=== PATIENT | male | born 1975 | race Caucasian/White ===

== ENCOUNTER 2022-04-09 04:20 | Outpatient (CLI) | payer MEDICAID, SELFPAY ==
--- OUTSIDE RECORDS SUMMARY | 2022-04-08 13:24 | XMS_ITS | Continuity of Care Document ---
:[address] [facility] Address [address] [place] [address] Care Team Providers Name Role Phone Korey Haro Primary Care Physician Encounter NCTY_[place] Date(s): 01/22/22 - 01/22/22 [facility] [address] [place] [address] Discharge Disposition: Home or Self Care Attending Physician: Fifi Amin Admitting Physician: Fifi Amin Referring Physician: Fifi Amin Allergies, Adverse Reactions, Alerts Substance Reaction Severity Status erythromycin Urticaria Unknown Active iodine topical Urticaria Moderate Active Assessment and Plan Future AppointmentsDiagnostic Tests PendingImmunoglobulin Free Light Chains, S MADRID 01/22/22 Future Scheduled TestsLaboratoryFerritin 11/13/21Drug Screen Urine 01/19/22 SARS-CoV-2 (COVID-19) RNA (ID Now) 11/26/21 Immunizations Given and Recorded Vaccine Date Status Refusal Reason influenza virus vaccine, live 12/31/16 Recorded tetanus/diphth/pertuss (Tdap) adult/adol 04/24/11 Recorde d Not Given Vaccine Date Status Refusal Reason influenza, unspecified formulation1 09/15/21 Not Given Patient Refuses influenza, unspecified formulation2 09/15/21 Not Given Patient Refuses 1Result Comment: Last modified on [id number] Comment: Last modified on 01-22-2020 Medications !-Spiriva 18 mcg inhalation capsule 18 mcg = 1 cap, Inhale, Daily, use two inhalations of one capsule for each dose, # 90 EA, 0 Refill(s), Pharmacy: [facility] Start Date: 10/27/21 Status: OrderedDuration: Lifetime Duration: , URGENT Severe Sleep Apnea Send to [facility] [place] [ x ] Auto BIPAP Imax 22 Jama 11 PS 4 cmH2O 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 Dispense PAP machine machine with heated tubing, humidification, and cristal... Start Date: 07/24/21 Status: OrderedHYDROcodone-acetaminophen 10 mg-325 mg oral tablet 2 tabs, Oral, every 4 hr, PRN as needed for pain, TAKE TWO TABLETS BY MOUTH EVERY 4 HOURS NEEDED FOR PAIN, # 252 tab, 0 Refill(s), Pharmacy: [facility] Start Date: 11/12/21 Status: OrderedHYDROcodone-acetaminophen 10 mg-325 mg oral tablet 2 tabs, Oral, every 4 hr, PRN as needed for pain, TAKE TWO TABLETS BY MOUTH EVERY 4 HOURS NEEDED FOR PAIN, # 252 tab, 0 Refill(s), Pharmacy: [facility] Start Date: 01/05/22 Status: Orderedmagnesium oxide 250 mg oral tablet 500 mg = 2 tab, Oral, Daily Start Date: 09/15/21 Status: OrderedNarcan 4 mg/0.1 mL nasal spray 1 sprays, Nasal, PRN other (see comment), Take as needed, 0 Refill(s) Start Date: 08/06/21 Status: OrderedpredniSONE 10 mg oral tablet 30 mg = 3 tab, Oral, Daily, taper to 20 mg after one month., # 180 tab, 0 Refill(s), Pharmacy: [facility] Start Date: 10/27/21 Stop Date: 12/26/21 Status: OrderedVentolin HFA 90 mcg/inh inhalation aerosol 180 mcg 2 puffs, Inhale, every 4 hr, PRN other (see comment), Take as needed, # 18 g, 3 Refill(s), Pharmacy: [facility] Start Date: 01/19/22 Status: Orderedzolpidem 10 mg oral tablet 10 mg = 1 tab, Oral, Daily, PRN not specified, # 28 tab, 0 Refill(s), Pharmacy: [facility] Start Date: 01/05/22 Status: Orderedzolpidem 10 mg oral tablet 10 mg = 1 tab, Oral, Daily, PRN not specified, # 28 tab, 0 Refill(s), Pharmacy: [facility] Start Date: 10/14/21 Status: Ordered Problem List Condition Confirmation Course Effective Dates Status Health I nformant Status Adjustment disorder Confirmed Active Arthralgia of the Confirmed Active ankle and/or foot Carpal tunnel Confirmed 01/08/19 Active syndrome Chronic bilateral low Confirmed Active back pain Chronic pain Confirmed Active Contact dermatitis Confirmed Active due to plants1 Diverticulitis of Confirmed Active large intestine Elevated Confirmed Active blood-pressure reading without diagnosis of hypertension Ganglion cyst Confirmed Active Gout Confirmed Active History of insomnia Confirmed Active Hip pain Confirmed Active Hypersomnia Confirmed Active Influenza2 Confirmed Active Insomnia Confirmed 07/10/20 Active Knee pain Confirmed Active Long-term drug Confirmed Active therapy Low back pain Confirmed Active Lumbosacral Confirmed Active radiculopathy Myositis Confirmed Active Nicotine dependence Confirmed Active Obesity Confirmed Active Pharyngitis Confirmed Active Sciatica Confirmed Active Shoulder joint pain Confirmed Active Sleep disorder Confirmed Active Snoring Confirmed Active Therapeutic drug Confirmed Active monitoring assay 1Except [id number] respiratory manifestation other than pneumonia Procedures Procedure Date Related Diagnosis Body Site Status Orthopedic Surgery 07/25/06 Completed Left hemicolectomy1 03/07/05 Complete d 1Partial removal of colon Results Laboratory List Name Date Basic Metabolic Panel 01/22/22 Most recent to oldest [Reference Range]: 1 BUN [7-18 mg/dL] 27 mg/dL *HI* (01/22/22 3:50 PM) Glucose Level [74-106 mg/dL] 323 mg/dL *HI* (01/22/22 3:50 PM) Potassium Level [3.5-5.1 mmol/L] 4.5 mmol/L (01/22/22 3:50 PM) Sodium Level [136-145 mmol/L] 135 mmol/L *LOW* (01/22/22 3:50 PM) Calcium Level [8.5-10.1 mg/dL] 9.3 mg/dL (01/22/22 3:50 PM) CO2 [21-32 mmol/L] 28 mmol/L (01/22/22 3:50 PM) eGFR Non-AA [>=60] 67 (01/22/22 3:50 PM) eGFR AA [>=60] 67 (01/22/22 3:50 PM) Chloride Level [98-107 mmol/L] 97 mmol/L *LOW* (01/22/22 3:50 PM) Creatinine Level [0.70-1.30 mg/dL] 1.32 mg/dL *HI* (01/22/22 3:50 PM) Social History Social History Type Response Tobacco Former tobacco user Tobacco Use:. Sex Male Patient Care team information PersonnelName: Korey Haro MD Address: Address: [address]
--- OUTSIDE RECORDS SUMMARY | 2022-04-08 13:24 | XMS_ITS | Continuity of Care Document ---
:1975 Author Organization [facility] Address [address] [place] [address] Care Team Providers Name Role Phone Korey Haro Primary Care Physician Encounter NCTY_[place] Date(s): 01/14/22 - 01/14/22 [facility] [address] [place] [address] Discharge Disposition: Home or Self Care Attending Physician: Geno Daniels MD Admitting Physician: Geno Daniels MD Referring Physician: Geno Daniels MD Allergies, Adverse Reactions, Alerts Substance Reaction Severity Status erythromycin Urticaria Unknown Active iodine topical Urticaria Moderate Active Assessment and Plan Future AppointmentsDiagnostic Tests PendingAldIan fisher MADRID 01/14/22 Future Scheduled TestsLaboratoryFerritin 11/13/2143WOCA-XoJ-0 (COVID-19) RNA (ID Now) 11/26/21 Immunizations Given and Recorded Vaccine Date Status Refusal Reason influenza virus vaccine, live 12/31/16 Recorded tetanus/diphth/pertuss (Tdap) adult/adol 04/24/11 Recorde d Not Given Vaccine Date Status Refusal Reason influenza, unspecified formulation1 09/15/21 Not Given Patient Refuses influenza, unspecified formulation2 09/15/21 Not Given Patient Refuses 1Result Comment: Last modified on [id number] Comment: Last modified on 01-22-2020 Medications !-Spiriva 18 mcg inhalation capsule 18 mcg = 1 cap, Inhale, Daily, use two inhalations of one capsule for each dose, # 90 EA, 0 Refill(s), Pharmacy: [facility] Start Date: 10/27/21 Status: OrderedDuration: Lifetime Duration: , URGENT Severe Sleep Apnea Send to [facility] [place] [ x ] Auto BIPAP Imax 22 [...] PAIN, # 252 tab, 0 Refill(s), Pharmacy: [facility] Start Date: 11/12/21 Status: OrderedHYDROcodone-acetaminophen 10 mg-325 mg oral tablet 2 tabs, Oral, every 4 hr, PRN as needed for pain, TAKE TWO TABLETS BY MOUTH EVERY 4 HOURS NEEDED FOR PAIN, # 252 tab, 0 Refill(s), Pharmacy: [facility] Start Date: 01/05/22 Status: Orderedmagnesium oxide [...] month., # 180 tab, 0 Refill(s), Pharmacy: [facility] Start Date: 10/27/21 Stop Date: 12/26/21 Status: OrderedVentolin HFA 90 mcg/inh inhalation aerosol 180 mcg 2 puffs, Inhale, every 4 hr, PRN other (see comment), Take as needed, # 18 g, 3 Refill(s), Pharmacy: [facility] Start Date: 10/27/21 Status: Orderedzolpidem 10 mg oral tablet 10 mg = 1 tab, Oral, Daily, PRN not specified, # 28 tab, 0 Refill(s), Pharmacy: [facility] Start Date: 01/05/22 Status: Orderedzolpidem 10 mg oral tablet 10 mg = 1 tab, Oral, Daily, PRN not specified, # 28 tab, 0 Refill(s), Pharmacy: [facility] Start Date: 10/14/21 Status: Ordered Problem [...] pain Confirmed Active Lumbosacral Confirmed Active radiculopathy Nicotine dependence Confirmed Active Obesity Confirmed Active Pharyngitis Confirmed Active Sciatica Confirmed Active Shoulder joint pain Confirmed Active Sleep disorder Confirmed Active Snoring Confirmed Active Therapeutic drug Confirmed Active monitoring assay 1Except [id number] respiratory manifestation other than pneumonia Procedures Procedure Date Related Diagnosis Body Site Status Orthopedic Surgery 07/25/06 Completed Left hemicolectomy1 03/07/05 Complete d 1Partial removal of colon Results Laboratory List Name Date .Manual Differential (NCTY) 01/14/22 C Reactive Protein [facility] 01/14/22 CBC w/ Diff 01/14/22 Comprehensive Metabolic Panel 01/14/22 Creatine Kinase 01/14/22 Sedimentation Rate (ESR) 01/14/22 Most recent to oldest [Reference Range]: 1 WBC [5.0-10.0 x10^3/mcL] 13.4 x10^3/mcL *HI* (01/14/22 10:36 AM) RBC [4.6-6.0 x10^6/mcL] 5.3 x10^6/mcL (01/14/22 10:36 AM) Segs Man [40-75 %] 89 % *HI* (01/14/22 10:36 AM) Lymph Man [20-50 %] 7 % *LOW* (01/14/22 10:36 AM) [place] Man 3 % *NA* (01/14/22 10:36 AM) Eos Man 1 % *NA* (01/14/22 10:36 AM) BUN [7-18 mg/dL] 33 mg/dL *HI* (01/14/22 10:36 AM) Glucose Level [74-106 mg/dL] 272 mg/dL *HI* (01/14/22 10:36 AM) Potassium Level [3.5-5.1 mmol/L] 4.2 mmol/L (01/14/22 10:36 AM) MCV [80.0-96.0] 87.5 (01/14/22 10:36 AM) RBC Morph Abnormal (01/14/22:36 AM) AST [15-37 unit/L] 40 unit/L *HI* (01/14/22 10:36 AM) ALT [16-63 unit/L] 88 unit/L *HI* (01/14/22 10:36 AM) MCHC [31.0-35.0 g/dL] 33.2 g/dL (01/14/22:36 AM) Sodium Level [136-145 mmol/L] 136 mmol/L (01/14/22 10:36 AM) Hct [41.0-51.0 %] 46.1 % (01/14/22:36 AM) Calcium Level [8.5-10.1 mg/dL] 8.9 mg/dL (01/14/22 10:36 AM) Albumin Level [3.4-5.0 g/dL] 3.4 g/dL (01/14/22:36 AM) Protein Total [6.4-8.2 g/dL] 7.3 g/dL (01/14/22 10:36 AM) MCH [26.0-32.0 pg] 29.0 pg (01/14/22:36 AM) Bilirubin Total [0.2-1.0 mg/dL] 0.5 mg/dL (01/14/22 10:36 AM) Hgb [14.0-18.0 g/dL] 15.3 g/dL (01/14/22 10:36 AM) Alk Phos [46-146 unit/L] 55 unit/L (01/14/22 10:36 AM) Band Man [0-5 %] 0 % (01/14/22 10:36 AM) Platelets [130-450 x10^3/mcL] 262 x10^3/mcL (01/14/22 10:36 AM) CO2 [21-32 mmol/L] 28 mmol/L (01/14/22 10:36 AM) Macrocyte Rare (01/14/22 10:36 AM) eGFR Non-AA [>=60] 56 *LOW* (01/14/22 10:36 AM) eGFR AA [>=60] 56 *LOW* (01/14/22 10:36 AM) Chloride Level [98-107 mmol/L] 100 mmol/L (01/14/22 10:36 AM) RDW-CV [11.5-17.0 %] 13.8 % (01/14/22 10:36 AM) Abs Neut Man 11.9 x10^3/mcL *NA* (01/14/22 10:36 AM) Anisocyte Rare (01/14/22 10:36 AM) Creatinine Level [0.70-1.30 mg/dL] 1.53 mg/dL *HI* (01/14/22 10:36 AM) C-Reactive Protein [facility] [<10.0 mg/L] <7.0 mg/L 1 *NA* (01/14/22 10:36 AM) Baso Man [0-1 %] 0 % (01/14/22 10:36 AM) CK [39-308 unit/L] 249 unit/L (01/14/22 10:36 AM) ESR, Westergren [0-20 mm/hr] 11 mm/hr (01/14/22 10:36 AM) 1Result Comment: Test performed [place] [address] Social History Social History Type Response Tobacco Former tobacco user Tobacco Use:. Sex Male Patient Care team information Care Team PersonnelName: Radha [employer] Position: Physician Member Role: Nurse Practitioner Address: Address: [address] [place] [address] Name: Korey Haro MD Position: Physician Member Role: Primary Care Physician Address: Address: [facility] [address] [place], [place] [address] Care Team Related PersonsName: EJ LARSEN Address: Home [address] [place] [address] Address: Mailing [address] [phone] Name: KRISTINA ROLDAN Address: Home [address] [place] [address] [place] [address] Name: FREDA ROLDAN Address: Home [address] [place], [place] [id number] [place] Address: Mailing [facility] [place] [address] Name: FREDA ROLDAN Address: Home [address] [place], [place] [id number] Address: Mailing [facility] [place] [address]
--- OUTSIDE RECORDS SUMMARY | 2022-04-08 13:25 | XMS_ITS | Continuity of Care Document ---
:1975 Author Organization [facility] Address [address] [place] [address] Care Team Providers Name Role Phone Korey Haro Primary Care Physician Encounter NCTY_[place] Date(s): 12/09/21 - 12/09/21 [facility] [address] [place] [address] Discharge Disposition: Home or Self Care Attending Physician: Henok Llamas Admitting Physician: Henok Llamas Referring Physician: Henok Llamas Allergies, Adverse Reactions, Alerts Substance Reaction Severity Status erythromycin Urticaria Unknown Active iodine topical Urticaria Moderate Active Assessment and Plan Future AppointmentsDiagnostic Tests PendingIan Catalan 12/09/21 Future Scheduled TestsLaboratoryFerritin 11/13/2180KRQY-HzO-6 (COVID-19) RNA (ID Now) 11/26/21 Immunizations Given and Recorded Vaccine Date Status Refusal Reason influenza virus vaccine, live 12/31/16 Recorded tetanus/diphth/pertuss (Tdap) adult/adol 04/24/11 Recorde d Not Given Vaccine Date Status Refusal Reason influenza, unspecified formulation1 09/15/21 Not Given Patient Refuses influenza, unspecified formulation2 09/15/21 Not Given Patient Refuses 1Result Comment: Last modified on [id number] Comment: Last modified on 01-22-2020 Medications !-Spiriva 18 mcg inhalation capsule 18 mcg = 1 cap, Inhale, Daily, use two inhalations of one capsule for each dose, # 90 EA, 0 Refill(s), Pharmacy: [facility] Start Date: 10/27/21 Status: OrderedDuration: Lifetime Duration: , URGENT Severe Sleep Apnea Send to [facility] [ x ] Auto BIPAP Imax 22 [...] PAIN, # 252 tab, 0 Refill(s), Pharmacy: [facility] Start Date: 11/12/21 Status: Orderedmagnesium oxide 250 mg oral tablet [...] month., # 180 tab, 0 Refill(s), Pharmacy: [facility] Start Date: 10/27/21 Stop Date: 12/26/21 Status: OrderedVentolin HFA 90 mcg/inh inhalation aerosol 180 mcg 2 puffs, Inhale, every 4 hr, PRN other (see comment), Take as needed, # 18 g, 3 Refill(s), Pharmacy: [facility] Start Date: 10/27/21 Status: Orderedzolpidem 10 mg oral tablet 10 mg = 1 tab, Oral, Daily, PRN not specified, # 28 tab, 0 Refill(s), Pharmacy: [facility] Start Date: 10/14/21 Status: Orderedzolpidem 10 mg oral tablet 10 mg = 1 tab, Oral, Daily, PRN not specified, # 28 tab, 0 Refill(s), Pharmacy: [facility] Start Date: 10/14/21 Status: Ordered Problem [...] Therapeutic drug Confirmed Active monitoring assay 1Except [id number] respiratory manifestation other than pneumonia Procedures Procedure Date Related Diagnosis Body Site Status Orthopedic Surgery 07/25/06 Completed Left hemicolectomy1 03/07/05 Complete d 1Partial removal of colon Results Laboratory List Name Date C Reactive Protein [facility] 12/09/21 CBC w/ Diff 12/09/21 Comprehensive Metabolic Panel 12/09/21 Creatine Kinase 12/09/21 Sedimentation Rate (ESR) 12/09/21 Automated Diff 12/09/21 Most recent to oldest [Reference Range]: 1 WBC [5.0-10.0 x10^3/mcL] 9.1 x10^3/mcL (12/09/21 10:20 AM) RBC [4.6-6.0 x10^6/mcL] 4.7 x10^6/mcL (12/09/21 10:20 AM) Neutro Auto [40.0-75.0 %] 67.2 % (12/09/21 10:20 AM) Lymph Auto [20.0-50.0 %] 23.5 % (12/09/21 10:20 AM) [place] Auto [2.0-15.0 %] 6.2 % (12/09/21 10:20 AM) Basophil Auto [0.0-1.0 %] 0.3 % (12/09/21 10:20 AM) BUN [7-18 mg/dL] 15 mg/dL (12/09/21 10:20 AM) Glucose Level [74-106 mg/dL] 255 mg/dL *HI* (12/09/21 10:20 AM) Potassium Level [3.5-5.1 mmol/L] 3.7 mmol/L (12/09/21 10:20 AM) MCV [80.0-103.0 fL] 86.1 fL (12/09/21 10:20 AM) AST [15-37 unit/L] 52 unit/L *HI* (12/09/21 10: AM) ALT [14-59 unit/L] 81 unit/L *HI* (12/09/21 10:20 AM) MCHC [31.0-35.0 g/dL] 33.9 g/dL (12/09/21 10: AM) Sodium Level [136-145 mmol/L] 135 mmol/L *LOW* (12/09/21 10: AM) Hct [41.0-51.0 %] 40.4 % *LOW* (12/09/21: AM) Calcium Level [8.5-10.1 mg/dL] 8.6 mg/dL (12/09/21 10: AM) Albumin Level [3.4-5.0 g/dL] 3.1 g/dL *LOW* (12/09/21: AM) Protein Total [6.4-8.2 g/dL] 7.0 g/dL (12/09/21 10:20 AM) MCH [26.0-32.0 pg] 29.2 pg (12/09/21 10: AM) Neutro Absolute 6.1 x10^3/mcL *NA* (12/09/21 10:20 AM) Bilirubin Total [0.2-1.0 mg/dL] 0.5 mg/dL (12/09/21 10:20 AM) Hgb [14.0-18.0 g/dL] 13.7 g/dL *LOW* (12/09/21 10:20 AM) Alk Phos [46-146 unit/L] 62 unit/L (12/09/21 10:20 AM) Platelets [130-450 x10^3/mcL] 218 x10^3/mcL (12/09/21 10:20 AM) CO2 [21-32 mmol/L] 25 mmol/L (12/09/21 10:20 AM) eGFR Non-AA [>=60] 84 (12/09/21 10:20 AM) eGFR AA [>=60] 84 (12/09/21 10:20 AM) Chloride Level [98-107 mmol/L] 100 mmol/L (12/09/21 10:20 AM) RDW-CV [11.5-17.0 %] 13.7 % (12/09/21 10:20 AM) Imm Gran Auto [0.0-0.9 %] 0.9 % (12/09/21 10:20 AM) Creatinine Level [0.70-1.30 mg/dL] 1.10 mg/dL (12/09/21 10:20 AM) C-Reactive Protein [facility] [<10.0 mg/L] 27.3 mg/L 1 *HI* (12/09/21 10:20 AM) Anion Gap [8-16 mmol/L] 10 mmol/L (12/09/21 10:20 AM) Eos, Auto [1.0-6.0 %] 1.9 % (12/09/21 10:20 AM) CK [39-308 unit/L] 516 unit/L *HI* (12/09/21 10:20 AM) ESR, Westergren [0-20 mm/hr] 55 mm/hr *HI* (12/09/21 10:20 AM) 1Result Comment: Test performed [place] [address] Social History Social History Type Response Tobacco Former tobacco user Tobacco Use:. Sex Male Patient Care team information PersonnelName: Korey Haro MD Address: Address: [address]
--- OUTSIDE RECORDS SUMMARY | 2022-04-08 13:25 | XMS_ITS | Continuity of Care Document ---
:1975 Author Organization [facility] Address [address] [place] [address] Care Team Providers Name Role Phone Korey Haro Primary Care Physician Encounter [facility] Date(s): 03/04/22 - 03/04/22 [facility] [address] [place] [address] Encounter Diagnosis Obstructive sleep apnea (Discharge Diagnosis) - 03/04/22 Periodic limb movement disorder (Discharge Diagnosis) - 03/04/22 Obstructive sleep apnea (adult) (pediatric) (Final) - Periodic limb movement disorder (Final) - Discharge Disposition: Home or Self Care Attending Physician: Radha Cherry SIEVE REPAIRER Allergies, Adverse Reactions, Alerts Substance Reaction Severity Status erythromycin Urticaria Unknown Active iodine topical Urticaria Moderate Active Assessment and Plan Future AppointmentsFuture Scheduled TestsLaboratoryFerritin 11/13/21Drug Screen Urine 01/19/2298MZEX-UlC-0 (COVID-19) RNA (ID Now) 11/26/21 Functional Status 03/04/22 Other exposure to Infectious Disease None Immunizations Given and Recorded Vaccine Date Status Refusal Reason influenza virus vaccine, live 12/31/16 Recorded tetanus/diphth/pertuss (Tdap) adult/adol 04/24/11 Recorde d Not Given Vaccine Date Status Refusal Reason influenza, unspecified formulation1 09/15/21 Not Given Patient Refuses influenza, unspecified formulation2 09/15/21 Not Given Patient Refuses 1Result Comment: Last modified on [id number] Comment: Last modified on 01-22-2020 Medications !-Spiriva 18 mcg inhalation capsule 18 mcg = 1 cap, Inhale, Daily, use two inhalations of one capsule for each dose, # 90 EA, 0 Refill(s), Pharmacy: [facility] Start Date: 10/27/21 Status: OrderedDuration: Lifetime Duration: , URGENT Severe Sleep Apnea Send to [facility] [ x ] Auto BIPAP Imax 22 Jama 11 PS 4 cmH2O 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 Dispense PAP machine machine with heated tubing, humidification, and cristal... Start Date: 07/24/21 Status: OrderedHYDROcodone-acetaminophen 10 mg-325 mg oral tablet See Instructions, Take 2 tablets by mouth every 4 hous as needed, # 252 tab, 0 Refill(s), Pharmacy: [facility], 70, cm, 01/30/22 20:57:00 EST, Height/Length Dosing, 137, kg, 01/30/22 20:57:00EST, Weight Dosing Start Date: 03/04/22 Status: Orderedmagnesium oxide 250 mg oral tablet 500 mg = 2 tab, Oral, Daily Start Date: 09/15/21 Status: Orderedmethotrexate 10 mg oral tablet 6 tabs, every week, 0 Refill(s) Start Date: 01/30/22 Status: OrderedNarcan 4 mg/0.1 mL nasal spray 1 sprays, Nasal, PRN other (see comment), Take as needed, 0 Refill(s) Start Date: 08/06/21 Status: OrderedpredniSONE 10 mg oral tablet 30 mg = 3 tab, Oral, Daily, taper to 20 mg after one month., # 180 tab, 0 Refill(s), Pharmacy: [facility] Start Date: 10/27/21 Stop Date: 12/26/21 Status: OrderedVentolin HFA 90 mcg/inh inhalation aerosol 180 mcg 2 puffs, Inhale, every 4 hr, PRN other (see comment), Take as needed, # 18 g, 3 Refill(s), Pharmacy: [facility] Start Date: 01/19/22 Status: Orderedzolpidem 10 mg oral tablet 10 mg = 1 tab, Oral, Daily, PRN not specified, # 28 tab, 2 Refill(s), Pharmacy: [facility], 70, cm, 01/30/22 20:57:00 EST, Height/Length Dosing, 137, kg, 01/30/22 20:57:00 EST, Weight Dosing Start Date: 02/02/22 Status: Ordered Problem List Condition Confirmation Course [...] Confirmed Active Long-term drug Confirmed Active therapy Loss of consciousness Confirmed Active Low back pain Confirmed Active Lumbosacral Confirmed Active radiculopathy Myositis Confirmed Active Nicotine dependence Confirmed Active Obesity Confirmed Active Obstructive sleep Confirmed Active apnea Periodic limb Confirmed Active movement disorder Pharyngitis Confirmed Active Sciatica Confirmed Active Shoulder joint pain Confirmed Active Sleep disorder Confirmed Active Snoring Confirmed Active Therapeutic drug Confirmed Active monitoring assay 1Except [id number] respiratory manifestation other than pneumonia Procedures Procedure Date Related Diagnosis Body Site Status Orthopedic Surgery 07/25/06 Completed Left hemicolectomy1 03/07/05 Complete d 1Partial removal of colon Vital Signs Most recent to oldest [Reference Range]: 1 Weight 149.69 kg (03/04/22 8:26 AM) Weight Measured (lbs) 330.01 lb (03/04/22 8:26 AM) Height 178 cm (03/04/22 8:26 AM) Height/Length Measured (inches) 70.08 inch (03/04/22 8:26 AM) BSA Measured 2.72 m2 (03/04/22 8:26 AM) Body Mass Index 47.24 kg/m2 (03/04/22 8:26 AM) Social History Social History Type Response Tobacco Former tobacco user Tobacco Use:. Sex Male Physician Outpatient Note Radha Cherry SIEVE REPAIRER: PERFORM Event Display: Office Clinic Note Physician Authored Date: [id number] LALITO LEDEZMA :1975 Age:46 years Sex:Male Visit Date:03/04/2022 Primary Care Physician: Korey Haro MD Chief Complaint fu bipap compliace History of Present Illness 46 year old male here for bipap compliance. ?? Past medical history includes covid pneumonia, elevated blood pressure, snoring, hypersomnia, nicotine depedence, obesity, multiple hip surgeries, peripheral neuropathy Recent hospitalization in March 2021 for covid pneumonia and resp failure ?PREVIOUS SLEEP EVALUATION: 05/21/2021. PSG. Weight 305 pounds. BMI 45.04 kg/m?? 1. AHI: 59.8/h. RDI: 72.6/h. RERA index 13/h 2. REM related AHI: 98.7/h. RDI: 100.3/h. REM supine AHI: 100/h. 3. Supine AHI: 71/h. Right lateral AHI: 56/h. Left lateral AHI: 40/h. Prone AHI: NA 8/h 4. Hypopneas scoring by the 4% desaturation criteria 5. SaO2 zenon: 62% on room air. 188.1 minutes were spent on oxygen saturation less than or equal to88%. 6. Mean O2: 87% on room air. 7. AI 63/h Movement data: PLM index: 1.9/h. PLM AI: 0.8/h.?? Overall impression, very severe obstructive sleep apnea, severe in rem sleep, associated with severe and significant nocturnal hypoxemia ?? 06/28/2021. titration PSG. patient not yet on pap therapy but with a high likelihood of needing Bipap 1.?CPAP and BIPAP titration for Severe Obstructive Sleep Apnea associated with significant nocturnal hypoxemia. 2.??Best tested pressure at BIPAP??18/??14 cmH2O which worked well for Right Lateral NREM and Right Lateral REM sleep. It appeared to part ially treat events in Supine REM Sleep. All lower pressures tested did NOT work for Supine REM sleep including BIPAP 16/??12cm H2O. BIPAP 14??/??10cm H2O mostly worked for Left Lateral NREM sleep with mild airflow limitation, and BIPAP 16/[id number] worked for Supine NREM sleep??. 3.??CPAP was tried and failed. Interface problems did not contribute to CPAPs inability to control the patient's sleep apnea. 4.??Adequate oxygenat ion was maintained on optimal pressures when respiratory events were resolved. 5.?Severe Periodic Limb Movement Disorder with significant arousals. PLM inde??x??27??/??hr PLM arousal index 9.3/ hr. Respironics Dreamwear, Full Face Mask in Size Medium-Wide Cushion, showed??mostly??acceptable leak profile ?? TODAY: Resmed auto BiPAP IMAX 22 JAMA 14 PS 4cmH20 with Airfit F20??FFM Pt reports he is using his BiPAP nightly and sleeping much better with it. He states his current pressures feel comfortable and denies any significant air leak. Pt states his DME is not sending him PAP supplies other than filters and is purchasing his suppliesoff of [employer]. Pt reports he is receiving immunoglobulin infusions every 28 days for his myositis with his rheum at the cancer center. Review of Systems A 10-point REVIEW OF SYSTEM was obtained and reviewed, includes CONSTITUTIONAL, EYES, NOSE, THROAT,RESPIRATORY, HEART, GASTROINTESTINAL, UROLOGIC, MUSCULOSKELETAL, PSYCHIATRY, SKIN systems. Pertinentsymptoms are discussed in history, otherwise negative. Physical Exam Vitals & Measurements HT:??178??cm?? WT:??149.69??kg?? BMI:??47.24?? BSA:??2.72?? General well appearing??statedage, no acute distress,??obesebuild HEENT: atraumatic skull, anicteric PSYCHIATRIC: well groomed, fluent speech, good insight, linear thought process, good eye contact,balanced NEUROLOGIC: alert, oriented, symmetric facial expression ?? Clinical Data Reviewed: ?? 1.Brem[place] Sleepiness Scale:??7out of 24. ?? 2.Sleep study results as above. ?? 3.No pertinent labs available.? 4. Machine Download Data:??Respironics ASV??Aircurve??10 VAuto BiPAP?? PAP Settings: ??Auto BIPAP?IMAX 22 JAMA 14 PS 4??CmH2O Date Range: ?02/01/22 - 03/02/22 Days with Usage >=4 hours: ??100% Avg Usage per Day Used: ??6hr 38min Mean/Median Pressure: ?19.1/15/.1 90th-tile/95th-tile Pressure: ?21.5/17.5 Median-90th%tile Leak?5.2 L/min Avg Treatment ??AHI: ??4.3/hr ?? Assessment/Plan 1.??Obstructive sleep apnea??G47.33 Lalito Ledezam is a pleasant 46 year old male here for bipap compliance. Download data reviewed and discussed with the patient. He has excellent compliance and reduction in AHI, tx AHI 4.3/hr. Pt stateshe is sleeping well with BiPAP. Denies any significant air leak with his FFM and reports pressures are comfortable. Pt is benefitting from BiPAP tx and is waking up feeling refreshed in the mornings.??Cont auto BiPAP IMAX 22 JAMA 14 PS 4cm H20. Pt reports he is not receiving PAP supplies from his DME and is purchasing them off of [employer]. Discussed importance of regularly replacing his PAP supplies. Sent order to [facility] for PAP supplies. 2.??Periodic limb movement disorder??G47.61 Pt reports he occasionally notes some leg movement in the evening but these movements??do not prevent him from falling asleep and do not wake him up at night. Denies any other sx of RLS. Cont to monitor. This visit was performed virtually using synchronous audio-visual connection via Zoom. As such, thephysical examination is necessarily limited. The risks and benefits of the use of this alternative platform were discussed with the patient and or guardian and verbal consent was obtained. My assessment and plans are based on such examination. Further evaluation, including in-person examination, may be needed depending on the response to management or today's recommendation.? The patient is??home.?? The provider is??in the office. ?? The patient has been positively identified and has consented to a video visit. ?? I provided greater than??40??minutes in the care of this patient, more than half the time was spent in [id number] counseling. ?with comorbidities of covid pneumonia, elevated blood pressure, snoring, hypersomnia, nicotinedepedence, obesity, multiple hip surgeries, peripheral neuropathy Recent hospitalization in March 2021 for covid pneumonia and resp failure ? Clinical Data Reviewed: Bremen Sleepiness Scale: ? Sleep Clinical Timeline:?? 05/21/2021. PSG. Weight 305 pounds. BMI 45.04 kg/m?? 1. AHI: 59.8/h. RDI: 72.6/h. RERA index 13/h 2. REM related AHI: 98.7/h. RDI: 100.3/h. REM supine AHI: 100/h. 3. Supine AHI: 71/h. Right lateral AHI: 56/h. Left lateral AHI: 40/h. Prone AHI: NA 8/h 4. Hypopneas scoring by the 4% desaturation criteria 5. SaO2 zenon: 62% on room air. 188.1 minutes were spent on oxygen saturation less than or equal to88%. 6. Mean O2: 87% on room air. 7. AI 63/h Movement data: PLM index: 1.9/h. PLM AI: 0.8/h.?? Overall impression, very severe obstructive sleep apnea, severe in rem sleep, associated with severe and significant nocturnal hypoxemia ?? 06/19/2021. F/U PSG results. Ordered titration study. ?? 06/28/2021. titration PSG. patient not yet on pap therapy but with a high likelihood of needing Bipap 1.?CPAP and BIPAP titration for Severe Obstructive Sleep Apnea associated with significant nocturnal hypoxemia. 2.??Best tested pressure at BIPAP??18/??14 cmH2O which worked well for Right Lateral NREM and Right Lateral REM sleep. It appeared to part ially treat events in Supine REM Sleep. All lower pressures tested did NOT work for Supine REM sleep including BIPAP 16/??12cm H2O. BIPAP 14??/??10cm H2O mostly worked for Left Lateral NREM sleep with mild airflow limitation, and BIPAP 16/[id number] worked for Supine NREM sleep??. 3.??CPAP was tried and failed. Interface problems did not contribute to CPAPs inability to control the patient's sleep apnea. 4.??Adequate oxygenat ion was maintained on optimal pressures when respiratory events were resolved. 5.?Severe Periodic Limb Movement Disorder with significant arousals. PLM inde??x??27??/??hr PLM arousal index 9.3/ hr. Respironics Dreamwear, Full Face Mask in Size Medium-Wide Cushion, showed??mostly??acceptable leak profile ?? 2021. BiPAP??compliance. Check TSH and ferritin. Decrease Ambien??to 5mg QHS PRN.?Cont current pressures. ?? 03/04/2022. F/u compliance. Order sent to [facility] for PAP supplies. Cont auto BiPAP !MAX 22 EMIN14 PS 4cm H20 with FFM. Pt currently undergoing myositis tx with his rheum; receiving??Q28day immunoglobulin??infusions at the cancer center. ? Today's Assessment and Plan: See above. ?? Follow up: 6 months or sooner if needed. ? Problem List/Past Medical History Ongoing Adjustment disorder Arthralgia of the ankle and/or foot Carpal tunnel syndrome Chronic bilateral low back pain Chronic pain Contact dermatitis due to plants Diverticulitis of large intestine Elevated blood-pressure reading without diagnosis of hypertension Ganglion cyst Gout Hip pain History of insomnia Hypersomnia Influenza Insomnia Knee pain Long-term drug therapy Loss of consciousness Low back pain Lumbosacral radiculopathy Myositis Nicotine dependence Obesity Obstructive sleep apnea Periodic limb movement disorder Pharyngitis Sciatica Shoulder joint pain Sleep disorder Snoring Therapeutic drug monitoring assay Historical No qualifying data Procedure/Surgical History ???Orthopedic Surgery (07/26/2006)???Left hemicolectomy (03/08/2005) Medications !-Spiriva 18 mcg inhalation capsule, 18 mcg= 1 cap, Inhale, Daily Duration: Lifetime / , See instructions HYDROcodone-acetaminophen 10 mg-325 mg oral tablet, See Instructions magnesium oxide 250 mg oral tablet, 500 mg= 2 tab, Oral, Daily methotrexate 10 mg oral tablet, 6 tabs, every week Narcan 4 mg/0.1 mL nasal spray, 1 sprays, Nasal, PRN predniSONE 10 mg oral tablet, 30 mg= 3 tab, Oral, Daily Ventolin HFA 90 mcg/inh inhalation aerosol, 180 mcg= 2 puffs, Inhale, every 4 hr, PRN, 3 refills zolpidem 10 mg oral tablet, 10 mg= 1 tab, Oral, Daily, PRN, 2 refills Allergies iodine topical??(Urticaria) erythromycin??(Urticaria) Social History Alcohol Current, 1-2 times per month Electronic Cigarette/Vaping Electronic Cigarette Use: Never. Employment/School Unemployed Home/Environment Lives with Children. Nutrition/Health Diet: Regular. Caffeine intake amount: raghu caff with H20. Substance Use Never Tobacco Former tobacco user Tobacco Use:. Family History Healthy adult: Mother and Father. Immunizations Vaccine Date Status influenza, unspecified formulation - Not Given Comments : Patient Refuses Last modified on 01-05-2019 influenza, unspecified formulation - Not Given Comments : Patient Refuses Last modified on 01-22-2020 influenza virus vaccine, live 12/31/2016 Recorded tetanus/diphth/pertuss (Tdap) adult/adol 04/24/2011 Recorded Electronically Signed on 03/04/22 08:49 AM Radha Cherry SIEVE REPAIRER Electronically Signed on 03/04/22 08:48 AM Barbara Randall Patient Care team information PersonnelName: Korey Haro MD Address: Address: [facility] [address] [address]- [place]
--- OUTSIDE RECORDS SUMMARY | 2022-04-08 13:25 | XMS_ITS | Continuity of Care Document ---
:1975 Author Organization [facility] Address [address] [place] [address] Care Team Providers Name Role Phone Korey Haro Primary Care Physician Encounter [facility] Date(s): 01/19/22 - 01/19/22 [facility] [address] [place] [address] Discharge Disposition: Home or Self Care Attending Physician: Korey Haro MD Admitting Physician: Korey Haro MD Referring Physician: Korey Haro MD Allergies, Adverse Reactions, Alerts Substance Reaction Severity Status erythromycin Urticaria Unknown Active iodine topical Urticaria Moderate Active Assessment and Plan Future AppointmentsFuture Scheduled TestsLaboratoryFerritin 11/13/21Drug Screen Urine 01/19/2276TEAR-SgB-0 (COVID-19) RNA (ID Now) 11/26/21 Immunizations Given and Recorded Vaccine Date Status Refusal Reason influenza virus vaccine, live 12/31/16 Recorded tetanus/diphth/pertuss (Tdap) adult/adol 04/24/11 Recorde d Not Given Vaccine Date Status Refusal Reason influenza, unspecified formulation1 09/15/21 Not Given Patient Refuses influenza, unspecified formulation2 09/15/21 Not Given Patient Refuses 1Result Comment: Last modified on [id number] Comment: Last modified on 01-22-2020 Medications !-Spiriva 18 mcg inhalation capsule 18 mcg = 1 cap, Inhale, Daily, use two inhalations of one capsule for each dose, # 90 EA, 0 Refill(s), Pharmacy: [facility] Start Date: 10/27/21 Status: OrderedDuration: Lifetime Duration: Lifetime , URGENT Severe Sleep Apnea Send to [facility] [ x ] Auto BIPAP Imax 22 [...] PAIN, # 252 tab, 0 Refill(s), Pharmacy: [facility] Start Date: 11/12/21 Status: OrderedHYDROcodone-acetaminophen 10 mg-325 mg oral tablet 2 tabs, Oral, every 4 hr, PRN as needed for pain, TAKE TWO TABLETS BY MOUTH EVERY 4 HOURS NEEDED FOR PAIN, # 252 tab, 0 Refill(s), Pharmacy: [facility] Start Date: 01/05/22 Status: Orderedmagnesium oxide [...] month., # 180 tab, 0 Refill(s), Pharmacy: [facility] Start Date: 10/27/21 Stop Date: 12/26/21 Status: OrderedVentolin HFA 90 mcg/inh inhalation aerosol 180 mcg 2 puffs, Inhale, every 4 hr, PRN other (see comment), Take as needed, # 18 g, 3 Refill(s), Pharmacy: [facility] Start Date: 01/19/22 Status: Orderedzolpidem 10 mg oral tablet 10 mg = 1 tab, Oral, Daily, PRN not specified, # 28 tab, 0 Refill(s), Pharmacy: [facility] Start Date: 01/05/22 Status: Orderedzolpidem 10 mg oral tablet 10 mg = 1 tab, Oral, Daily, PRN not specified, # 28 tab, 0 Refill(s), Pharmacy: [facility] Start Date: 10/14/21 Status: Ordered Problem [...] Therapeutic drug Confirmed Active monitoring assay 1Except [id number] respiratory manifestation other than pneumonia Procedures Procedure Date Related Diagnosis Body Site Status Orthopedic Surgery 07/25/06 Completed Left hemicolectomy1 03/07/05 Complete d 1Partial removal of colon Results Laboratory List Name Date Drug Screen Urine (Drug Screen Urine w/ Opiate Conf) 1 03/21/21 Most recent to oldest [Reference Range]: 1 U Amph Scrn [Negative] Negative (01/19/22 1:19 PM) U Benzodia Scrn [Negative] Negative (01/19/22 1:19 PM) U Cocaine Scrn [Negative] Negative (01/19/22 1:19 PM) U Lexus Scrn [Negative] Negative (01/19/22 1:19 PM) U Opiate Scrn [Negative] Positive *ABN* (01/19/22 1:19 PM) U Oxy Scrn [Negative] Negative (01/19/22 1:19 PM) U PCP Scrn [Negative] Negative (01/19/22 1:19 PM) U THC Scr [Negative] Negative (01/19/22 1:19 PM) U PPX Scr [Negative] Negative (01/19/22 1:19 PM) U Methadone Scr [Negative] Negative (01/19/22 1:19 PM) U Buprenorph Scr [Negative] Negative (01/19/22 1:19 PM) U mAMP Scr [Negative] Negative (01/19/22 1:19 PM) U TCA Scr [Negative] Negative (01/19/22 1:19 PM) Social History Social History Type Response Tobacco Former tobacco user Tobacco Use:. Sex Male Patient Care team information Care Team PersonnelName: Radha Cherry PASTORAL WORKER Position: Physician Member Role: Nurse Practitioner Address: Address: [address] [place], [place] [id number] [place] [address] Name: Korey Haro MD Position: Physician Member Role: Primary Care Physician Address: Address: [facility] [address] Care Team Related PersonsName: EJ LARSEN Address: Home [address] [place] [address] Address: Mailing [address] [place], [place] [id number] Name: FREDA ROLDAN Address: Home [address] [place], [place] [id number] Address: Mailing [address] [place] [id number]
--- OUTSIDE RECORDS SUMMARY | 2022-04-08 13:25 | XMS_ITS | Continuity of Care Document ---
:1975 Author Organization [facility] Address [address] [place] [address] Care Team Providers Name Role Phone Korey Haro Primary Care Physician Encounter NCTY_MS Date(s): 04/06/22 - 04/06/22 [facility] [address] [place] [address] Discharge Disposition: Home or Self Care Attending Physician: Geno Daniels MD Admitting Physician: Geno Daniels MD Referring Physician: Geno Daniels MD Allergies, Adverse Reactions, Alerts Substance Reaction Severity Status erythromycin Urticaria Unknown Active iodine topical Urticaria Moderate Active Assessment and Plan Future AppointmentsDiagnostic Tests PendingIan Catalan 04/06/22 Future Scheduled TestsLaboratoryFerritin 11/13/21Drug Screen Urine 01/19/22 SARS-CoV-2 (COVID-19) RNA (ID Now) 11/26/21 Immunizations Given and Recorded Vaccine Date Status Refusal Reason influenza virus vaccine, live 12/31/16 Recorded tetanus/diphth/pertuss (Tdap) adult/adol 04/24/11 Recorde d Not Given Vaccine Date Status Refusal Reason influenza, unspecified formulation1 09/15/21 Not Given Patient Refuses influenza, unspecified formulation2 09/15/21 Not Given Patient Refuses 1Result Comment: Last modified on [id number] Comment: Last modified on 01-22-2020 Medications Duration: Lifetime Duration: Lifetime , URGENT Severe Sleep Apnea Send to [facility] [ x ] Auto BIPAP Imax 22 Jama 11 PS 4 cmH2O 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 Dispense PAP machine machine with heated tubing, humidification, and cristal... Start Date: 07/24/21 Status: OrderedHYDROcodone-acetaminophen 10 mg-325 mg oral tablet See Instructions, Take 2 tablets by mouth every 4 hous as needed, # 252 tab, 0 Refill(s), Pharmacy: [facility], 70, cm, 01/30/22 20:57:00 EST, Height/Length Dosing, 137, kg, 01/30/22 20:57:00EST, Weight Dosing Start Date: 04/01/22 Status: OrderedHYDROcodone-acetaminophen 10 mg-325 mg oral tablet See Instructions, Take 2 tablets by mouth every 4 hous as needed, # 252 tab, 0 Refill(s), Pharmacy: [facility], 70, cm, 01/30/22 20:57:00 EST, Height/Length Dosing, 137, kg, 01/30/22 20:57:00EST, Weight Dosing Start Date: 04/01/22 Status: Orderedmagnesium oxide 250 mg oral tablet [...] month., # 180 tab, 0 Refill(s), Pharmacy: [facility] Start Date: 10/27/21 Stop Date: 12/26/21 Status: OrderedSpiriva HandiHaler 18 mcg inhalation capsule 1 cap, Inhale, Daily, # 90 cap, 1 Refill(s), Pharmacy: [facility], 70, cm, 01/30/22 20:57:00 EST, Height/Length Dosing, 137, kg, 01/30/22 20:57:00 EST, Weight Dosing Start Date: 03/13/22 Status: OrderedVentolin HFA 90 mcg/inh inhalation aerosol 180 mcg 2 puffs, Inhale, every 4 hr, PRN other (see comment), Take as needed, # 18 g, 3 Refill(s), Pharmacy: [facility] Start Date: 01/19/22 Status: Orderedzolpidem 10 mg oral tablet 10 mg = 1 tab, Oral, Daily, PRN not specified, # 28 tab, 2 Refill(s), Pharmacy: [facility], 70, cm, 01/30/22 20:57:00 EST, Height/Length [...] Therapeutic drug Confirmed Active monitoring assay 1Except [id number] respiratory manifestation other than pneumonia Procedures Procedure Date Related Diagnosis Body Site Status Orthopedic Surgery 07/25/06 Completed Left hemicolectomy1 03/07/05 Complete d 1Partial removal of colon Results Laboratory List Name Date C-Reactive Protein High Sensitivity 04/06/22 Creatine Kinase 04/06/22 Creatinine 04/06/22 Hepatic Function Panel 04/06/22 SARS-CoV-2 (COVID-19)/Flu/RSV (GeneXpert) 04/06/22 Sedimentation Rate (ESR) 04/06/22 GGT 04/06/22 Most recent to oldest [Reference Range]: 1 AST [15-37 unit/L] 146 unit/L *HI* (04/06/22 2:58 PM) ALT [16-63 unit/L] 280 unit/L *HI* (04/06/22 2:58 PM) Albumin Level [3.4-5.0 g/dL] 3.5 g/dL (04/06/22 2:58 PM) Protein Total [6.4-8.2 g/dL] 8.0 g/dL (04/06/22 2:58 PM) Bilirubin Total [0.2-1.0 mg/dL] 0.6 mg/dL (04/06/22 2:58 PM) Alk Phos [46-146 unit/L] 55 unit/L (04/06/22 2:58 PM) Bilirubin Direct [0.00-0.20 mg/dL] 0.18 mg/dL (04/06/22 2:58 PM) GGT [15-85 unit/L] 350 unit/L *HI* (04/06/22 2:58 PM) eGFR Non-AA [>=60] 63 (04/06/22 2:58 PM) eGFR AA [>=60] 63 (04/06/22 2:58 PM) CRP High Sens [0.00-3.00 mg/L] 5.81 mg/L *HI* (04/06/22 2:58 PM) Creatinine Level [0.70-1.30 mg/dL] 1.40 mg/dL *HI* (04/06/22 2:58 PM) Employed in healthcare? Unknown *NA* (04/06/22 2:58 PM) Symptomatic as defined by CDC? Unknown *NA* (04/06/22 2:58 PM) Hospitalized due to COVID-19? Unknown *NA* (04/06/22 2:58 PM) In ICU? Unknown *NA* (04/06/22 2:58 PM) Group care resident? Unknown *NA* (04/06/22 2:58 PM) status? Not *NA* (04/06/22 2:58 PM) SARS-CoV-2(Covid19)PCR(GXpert COVFLURSV) [Negative] Ne gative (04/06/22 2:58 PM) Flu A (GXpert COVFLURSV) [Negative] Negative (04/06/22 2:58 PM) RSV (GXpert COVFLURSV) [Negative] Negative (04/06/22 2:58 PM) Flu B (GXpert COVFLURSV) [Negative] Negative (04/06/22 2:58 PM) CK [39-308 unit/L] 83 unit/L (04/06/22 2:58 PM) ESR, Westergren [0-20 mm/hr] 12 mm/hr (04/06/22 2:58 PM) Social History Social History Type Response Tobacco Former tobacco user Tobacco Use:. Sex Male Patient Care team information PersonnelName: Korey Haro MD Address: Address: [address]
--- OUTSIDE RECORDS SUMMARY | 2022-04-08 13:25 | XMS_ITS | Continuity of Care Document ---
:1975 Author Organization [facility] Address [address] [place] [address] Care Team Providers Name Role Phone Korey Haro Primary Care Physician Encounter NCTY_HI Date(s): 02/25/22 - 02/25/22 [facility] [address] [place] [address] Discharge Disposition: Home or Self Care Attending Physician: Galen Shipman MD Admitting Physician: Galen Shipman MD Referring Physician: Galen Shipman MD Allergies, Adverse Reactions, Alerts Substance Reaction Severity Status erythromycin Urticaria Unknown Active iodine topical Urticaria Moderate Active Assessment and Plan Future AppointmentsDiagnostic Tests PendingAldolase, S MADRID 02/25/22 Future Scheduled TestsLaboratoryFerritin 11/13/21Drug Screen Urine 01/19/22 SARS-CoV-2 (COVID-19) RNA (ID Now) 11/26/21 Immunizations Given and Recorded Vaccine Date Status Refusal Reason influenza virus vaccine, live 12/31/16 Recorded tetanus/diphth/pertuss (Tdap) adult/adol 04/24/11 Recorde d Not Given Vaccine Date Status Refusal Reason influenza, unspecified formulation1 09/15/21 Not Given Patient Refuses influenza, unspecified formulation2 09/15/21 Not Given Patient Refuses 1Result Comment: Last modified on [id number] Comment: Last modified on 01-22-2020 Medications !-Spiriva 18 mcg inhalation capsule 18 mcg = 1 cap, Inhale, Daily, use two inhalations of one capsule for each dose, # 90 EA, 0 Refill(s), Pharmacy: [facility] Start Date: 10/27/21 Status: OrderedDuration: Lifetime Duration: , URGENT Severe Sleep Apnea Send to [facility] [ x ] Auto BIPAP Imax 22 Jama 11 PS 4 cmH2O 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 Dispense PAP machine machine with heated tubing, humidification, and cristal... Start Date: 07/24/21 Status: OrderedHYDROcodone-acetaminophen 10 mg-325 mg oral tablet See Instructions, Take 2 tablets by mouth every 4 hous as needed, # 252 tab, 0 Refill(s), Pharmacy: [facility], 70, cm, 01/30/22 20:57:00 EST, Height/Length Dosing, 137, kg, 01/30/22 20:57:00EST, Weight Dosing Start Date: 02/02/22 Status: Orderedmagnesium oxide 250 mg oral tablet [...] month., # 180 tab, 0 Refill(s), Pharmacy: [facility] Start Date: 10/27/21 Stop Date: 12/26/21 Status: OrderedVentolin HFA 90 mcg/inh inhalation aerosol 180 mcg 2 puffs, Inhale, every 4 hr, PRN other (see comment), Take as needed, # 18 g, 3 Refill(s), Pharmacy: [facility] Start Date: 01/19/22 Status: Orderedzolpidem 10 mg oral tablet 10 mg = 1 tab, Oral, Daily, PRN not specified, # 28 tab, 2 Refill(s), Pharmacy: [facility], 70, cm, 01/30/22 20:57:00 EST, Height/Length [...] Therapeutic drug Confirmed Active monitoring assay 1Except [id number] respiratory manifestation other than pneumonia Procedures Procedure Date Related Diagnosis Body Site Status Orthopedic Surgery 07/25/06 Completed Left hemicolectomy1 03/07/05 Complete d 1Partial removal of colon Results Laboratory List Name Date C Reactive Protein [facility] 02/25/22 Creatine Kinase 02/25/22 Creatinine 02/25/22 GGT 02/25/22 Hepatic Function Panel 02/25/22 SARS-CoV-2 (COVID-19)/Flu/RSV (GeneXpert) 02/25/22 Sedimentation Rate (ESR) 02/25/22 Most recent to oldest [Reference Range]: 1 AST [15-37 unit/L] 68 unit/L *HI* (02/25/22 9:21 AM) ALT [16-63 unit/L] 126 unit/L *HI* (02/25/22 9:21 AM) Albumin Level [3.4-5.0 g/dL] 3.3 g/dL *LOW* (02/25/22 9:21 AM) Protein Total [6.4-8.2 g/dL] 7.7 g/dL (02/25/22 9:21 AM) Bilirubin Total [0.2-1.0 mg/dL] 0.5 mg/dL (02/25/22 9:21 AM) Alk Phos [46-146 unit/L] 44 unit/L *LOW* (02/25/22 9:21 AM) Bilirubin Direct [0.00-0.20 mg/dL] 0.15 mg/dL (02/25/22 9:21 AM) GGT [15-85 unit/L] 120 unit/L *HI* (02/25/22 9:21 AM) eGFR Non-AA [>=60] 78 (02/25/22 9:21 AM) eGFR AA [>=60] 78 (02/25/22 9:21 AM) Creatinine Level [0.70-1.30 mg/dL] 1.17 mg/dL (02/25/22 9:21 AM) Employed 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 Unknown *NA* (02/25/22 9:21 AM) Hospitalized due to COVID-19? No *NA* (02/25/22 9:21 AM) In ICU? No *NA* (02/25/22 9:21 AM) Group care resident? No *NA* (02/25/22 9:21 AM) status? Not *NA* (02/25/22 9:21 AM) SARS-CoV-2(Covid19)PCR(GXpert COVFLURSV) [Negative] Ne gative (02/25/22 9:21 AM) Flu A (GXpert COVFLURSV) [Negative] Negative (02/25/22 9:21 AM) RSV (GXpert COVFLURSV) [Negative] Negative (02/25/22 9:21 AM) Flu B (GXpert COVFLURSV) [Negative] Negative (02/25/22 9:21 AM) C-Reactive Protein [facility] [<10.0 mg/L] <7.0 mg/L 1 *NA* (02/25/22 9:21 AM) CK [39-308 unit/L] 66 unit/L (02/25/22 9:21 AM) ESR, Westergren [0-20 mm/hr] 8 mm/hr (02/25/22 9:21 AM) 1Result Comment: Test performed [place] [address] Social History Social History Type Response Tobacco Former tobacco user Tobacco Use:. Sex Male Patient Care team information PersonnelName: Korey Haro MD Address: Address: [address] [address]- [place]
--- OUTSIDE RECORDS SUMMARY | 2022-04-08 13:25 | XMS_ITS | Continuity of Care Document ---
:1975 Author Organization [facility] Address [address] [place] [address] Care Team Providers Name Role Phone Korey Haro Primary Care Physician Encounter NCTY_[place] Date(s): 01/30/22 - 01/31/22 [facility] [address] [place] [address] Encounter Diagnosis Loss of consciousness (Discharge Diagnosis) - 01/31/22 Altered mental status (Discharge Diagnosis) - 01/30/22 Leukocytosis (Discharge Diagnosis) - 01/30/22 Elevated lactic acid level (Discharge Diagnosis) - 01/30/22 Myositis (Discharge Diagnosis) - 01/31/22 Sleep disorder (Discharge Diagnosis) - 01/31/22 Discharge Disposition: Home or Self Care Attending Physician: Clarissa Briggs NP Admitting Physician: Clarissa Briggs CORRECTIONS NURSE Allergies, Adverse Reactions, Alerts Substance Reaction Severity Status erythromycin Urticaria Unknown Active iodine topical Urticaria Moderate Active Assessment and Plan Future AppointmentsFuture Scheduled TestsLaboratoryFerritin 11/13/21Drug Screen Urine 01/19/2223XSEY-VhX-1 (COVID-19) RNA (ID Now) 11/26/21 Functional Status 01/30/22 Living Environment No Living Environment Inform ation Available Lives In Single level home Home Barriers None 01/30/22 Family Member Travel History No recent travel Recent Travel History No recent travel Other exposure to Infectious Disease None Immunizations Given and Recorded Vaccine Date Status Refusal Reason influenza virus vaccine, live 12/31/16 Recorded tetanus/diphth/pertuss (Tdap) adult/adol 04/24/11 Recorde d Not Given Vaccine Date Status Refusal Reason influenza, unspecified formulation1 09/15/21 Not Given Patient Refuses influenza, unspecified formulation2 09/15/21 Not Given Patient Refuses 1Result Comment: Last modified on [id number] Comment: Last modified on 01-22-2020 Medications !-Augmentin 875 mg-125 mg oral tablet 1 tab, Oral, every 12 hr, # 10 tab, 0 Refill(s), Pharmacy: [facility], 70, cm, 01/30/22 20:57:00 EST, Height/Length Dosing, 137, kg, 01/30/22 20:57:00 EST, Weight Dosing Start Date: 01/31/22 Stop Date: 02/05/22 Status: Ordered!-Spiriva 18 mcg inhalation capsule 18 mcg = 1 cap, Inhale, Daily, use two inhalations of one capsule for each dose, # 90 EA, 0 Refill(s), Pharmacy: [facility] Start Date: 10/27/21 Status: OrderedDuration: Duration: , URGENT Severe Sleep Apnea Send to [facility] [ x ] Auto BIPAP Imax 22 Jama 11 PS 4 cmH2O 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 Dispense PAP machine machine with heated tubing, humidification, and cristal... Start Date: 07/24/21 Status: Orderedmagnesium oxide 250 mg oral tablet [...] month., # 180 tab, 0 Refill(s), Pharmacy: [facility] Start Date: 10/27/21 Stop Date: 12/26/21 Status: OrderedVentolin HFA 90 mcg/inh inhalation aerosol 180 mcg 2 puffs, Inhale, every 4 hr, PRN other (see comment), Take as needed, # 18 g, 3 Refill(s), Pharmacy: [facility] Start Date: 01/19/22 Status: Ordered Mental Status 01/30/22 Eye Opening Response [place] Spontaneously Best Verbal Response [place] Oriented Best Motor Response [place] Obeys commands Juan Pablo Coma Score 15 Problem List Condition Confirmation Course Effective Dates [...] Therapeutic drug Confirmed Active monitoring assay 1Except [id number] respiratory manifestation other than pneumonia Procedures Procedure Date Related Diagnosis Body Site Status Orthopedic Surgery 07/25/06 Completed Left hemicolectomy1 03/07/05 Complete d 1Partial removal of colon Results Laboratory List Name Date D-Dimer 01/31/22 GGT 01/31/22 Basic Metabolic Panel 01/31/22 CBC w/o Diff 01/31/22 Hepatic Function Panel 01/31/22 Lactic Acid 01/31/22 Urinalysis Microscopic 01/30/22 Urinalysis with Microscopic 01/30/22 .Manual Differential (NCTY) 01/30/22 C-Reactive Protein High Sensitivity (CRP HS) 01/30/22 CBC w/ Diff 01/30/22 Comprehensive Metabolic Panel (CMP) 01/30/22 Creatine Kinase (CK) 01/30/22 Lactic Acid 01/30/22 .Manual Differential (NCTY) 01/30/22 Acetaminophen Level 01/30/22 CBC w/ Diff 01/30/22 Lactic Acid 01/30/22 Troponin-I 01/30/22 Drug Screen Urine 01/30/22 SARS-CoV-2 (COVID-19)/Flu/RSV (GeneXpert) 01/30/22 Alcohol Level 01/30/22 Basic Metabolic Panel (BMP) 01/30/22 Procalcitonin 01/30/22 Troponin-I 01/30/22 Automated Diff 01/30/22 Most recent to oldest 1 2 3 [Reference Range]: WBC [5.0-10.0 x10^3/mcL] 12.3 x10^3/mcL 15.8 x10^3/mcL 15.6 x1 0^3/mcL *HI* *HI* *HI* (01/31/22 6:58 AM) (01/30/22 3:56 PM) (01/30/22 1:02 PM) RBC [4.6-6.0 x10^6/mcL] 4.9 x10^6/mcL 5.5 x10^6/mcL 5.6 x10^ 6/mcL (01/31/22 6:58 AM) (01/30/22 3:56 PM) (01/30/22 1:02 PM) Segs Man [40-75 %] 87 % 88 % *HI* *HI* (01/30/22 3:56 PM) (01/30/22 1:02 PM) Lymph Man [20-50 %] 11 % 10 % *LOW* *LOW* (01/30/22 3:56 PM) (01/30/22 1:02 PM) Neutro Auto [40.0-75.0 %] 73.6 % (01/30/22 10:07 AM) Lymph Auto [20.0-50.0 %] 18.2 % *LOW* (01/30/22 10:07 AM) [place] Auto [2.0-15.0 %] 5.4 % (01/30/22 10:07 AM) Basophil Auto [0.0-1.0 %] 0.4 % (01/30/22 10:07 AM) [place] Man 2 % 0 % *NA* *NA* (01/30/22 3:56 PM) (01/30/22 1:02 PM) Eos Man 0 % 0 % *NA* *NA* (01/30/22 3:56 PM) (01/30/22 1:02 PM) BUN [7-18 mg/dL] 22 mg/dL 23 mg/dL 22 mg/dL *HI* *HI* *HI* (01/31/22 6:58 AM) (01/30/22 3:56 PM) (01/30/22 10:07 AM) U Amph Scrn [Negative] Negative (01/30/22 11:35 AM) UA Color Yellow (01/30/22 6:14 PM) UA WBC [0-3] 0-3 (01/30/22 6:14 PM) Glucose Level [74-106 179 mg/dL 1 259 mg/dL 168 mg/dL mg/dL] *HI* *HI* *HI* (01/31/22 6:58 AM) (01/30/22 3:56 PM) (01/30/22 10:07 AM) Potassium Level [3.5-5.1 3.4 mmol/L 4.6 mmol/L 4.1 mmo l/L mmol/L] *LOW* (01/30/22 3:56 PM) (01/30/22 10: 07 AM) (01/31/22 6:58 AM) U Benzodia Scrn [Negative] Negative (01/30/22 11:35 AM) MCV [80.0-96.0] 89.4 87.7 87.8 (01/31/22 6:58 AM) (01/30/22 3:56 PM) (01/30/22 1:02 PM) UA Urobilinogen Normal (01/30/22 6:14 PM) RBC Morph Normal Normal (01/30/22 3:56 PM) (01/30/22 1:02 PM) UA Bili [Negative] Negative (01/30/22 6:14 PM) UA Ketones Negative (01/30/22 6:14 PM) AST [15-37 unit/L] 29 unit/L 71 unit/L (01/31/22 6:58 AM) *HI* (01/30/22 3:56 PM) ALT [16-63 unit/L] 73 unit/L 114 unit/L *HI* *HI* (01/31/22 6:58 AM) (01/30/22 3:56 PM) MCHC [31.0-35.0 g/dL] 32.6 g/dL 33.3 g/dL 32.8 g/dL (01/31/22 6:58 AM) (01/30/22 3:56 PM) (01/30/22 1:02 PM) Troponin-I [0.0-76.2 pg/mL] 6.5 pg/mL 8.6 pg/mL (01/30/22 1:02 PM) (01/30/22 10:07 AM) Sodium Level [136-145 139 mmol/L 136 mmol/L 134 mmol/L mmol/L] (01/31/22 6:58 AM) (01/30/22 3:56 PM) *LOW* (01/30/22 10:07 AM) UA RBC [0-2] 0-2 (01/30/22 6:14 PM) UA Leuk Est Negative (01/30/22 6:14 PM) UA Nitrite Negative (01/30/22 6:14 PM) UA Glucose [Negative] Negative (01/30/22 6:14 PM) Hct [41.0-51.0 %] 43.9 % 48.6 % 48.8 % (01/31/22 6:58 AM) (01/30/22 3:56 PM) (01/30/22 1:02 PM) UA Bacteria None Seen /HPF (01/30/22 6:14 PM) U Cocaine Scrn [Negative] Negative (01/30/22 11:35 AM) Calcium Level [8.5-10.1 8.3 mg/dL 8.6 mg/dL 8.4 mg/d L mg/dL] *LOW* (01/30/22 3:56 PM) *LOW* (01/31/22 6:58 AM) (01/30/22 10: 07 AM) Albumin Level [3.4-5.0 3.0 g/dL 3.6 g/dL g/dL] *LOW* (01/30/22 3:56 PM) (01/31/22 6:58 AM) Protein Total [6.4-8.2 6.3 g/dL 2 7.5 g/dL g/dL] *LOW* (01/30/22 3:56 PM) (01/31/22 6:58 AM) UA Protein Negative (01/30/22 6:14 PM) MCH [26.0-32.0 pg] 29.1 pg 29.2 pg 28.8 pg (01/31/22 6:58 AM) (01/30/22 3:56 PM) (01/30/22 1:02 PM) Neutro Absolute 10.9 x10^3/mcL *NA* (01/30/22 10:07 AM) Bilirubin Total [0.2-1.0 0.3 mg/dL 0.7 mg/dL mg/dL] (01/31/22 6:58 AM) (01/30/22 3:56 PM) Hgb [14.0-18.0 g/dL] 14.3 g/dL 16.2 g/dL 16.0 g/dL (01/31/22 6:58 AM) (01/30/22 3:56 PM) (01/30/22 1:02 PM) Alk Phos [46-146 unit/L] 52 unit/L 59 unit/L (01/31/22 6:58 AM) (01/30/22 3:56 PM) UA Blood Negative (01/30/22 6:14 PM) Ethanol Level [0-10 mg/dL] <5 mg/dL (01/30/22 10:07 AM) UA Mucous None Seen /HPF (01/30/22 6:14 PM) Band Man [0-5 %] 0 % 1 % (01/30/22 3:56 PM) (01/30/22 1:02 PM) UA Spec Grav 1.015 *NA* (01/30/22 6:14 PM) Bilirubin Direct [0.00-0.20 0.07 mg/dL mg/dL] (01/31/22 6:58 AM) Platelets [130-450 199 x10^3/mcL 266 x10^3/mcL 256 x10^3/mcL x10^3/mcL] (01/31/22 6:58 AM) (01/30/22 3:56 PM) (01/30/22 1:02 PM) CO2 [21-32 mmol/L] 25 mmol/L 28 mmol/L 26 mmol/L (01/31/22 6:58 AM) (01/30/22 3:56 PM) (01/30/22 10:07 AM) U Lexus Scrn [Negative] Negative (01/30/22 11:35 AM) Lactic Acid Lvl [0.7-2.1 3.0 mmol/L 4.5 mmol/L 3.4 mmo l/L mmol/L] *HI* *HI* *HI* (01/31/22 6:58 AM) (01/30/22 3:56 PM) (01/30/22 1:02 PM) UA Squam Epithelial [None Rare Seen] (01/30/22 6:14 PM) GGT [15-85 unit/L] 77 unit/L (01/31/22 6:58 AM) UA pH 5.5 *NA* (01/30/22 6:14 PM) U Opiate Scrn [Negative] Positive *ABN* (01/30/22 11:35 AM) eGFR Non-AA [>=60] 79 61 72 (01/31/22 6:58 AM) (01/30/22 3:56 PM) (01/30/22 10:07 AM) eGFR AA [>=60] 79 61 72 (01/31/22 6:58 AM) (01/30/22 3:56 PM) (01/30/22 10:07 AM) UA Appear Clear (01/30/22 6:14 PM) Acetaminophen Level [10-20 <10 ug/mL ug/mL] *LOW* (01/30/22 1:02 PM) Chloride Level [98-107 105 mmol/L 97 mmol/L 100 mmol/ L mmol/L] (01/31/22 6:58 AM) *LOW* (01/30/22 10: 07 AM) (01/30/22 3:56 PM) Procalcitonin [0.00-0.50 <0.15 ng/mL ng/mL] (01/30/22 10:07 AM) U Oxy Scrn [Negative] Negative (01/30/22 11:35 AM) U PCP Scrn [Negative] Negative (01/30/22 11:35 AM) RDW-CV [11.5-17.0 %] 14.4 % 14.4 % 14.5 % (01/31/22 6:58 AM) (01/30/22 3:56 PM) (01/30/22 1:02 PM) U THC Scr [Negative] Negative (01/30/22 11:35 AM) U PPX Scr [Negative] Negative (01/30/22 11:35 AM) U Methadone Scr [Negative] Negative (01/30/22 11:35 AM) Imm Gran Auto [0.0-0.9 %] 1.5 % *HI* (01/30/22 10:07 AM) CRP High Sens [0.00-3.00 8.26 mg/L mg/L] *HI* (01/30/22 3:56 PM) UA Culture Ind?. Not Applicable (01/30/22 6:14 PM) U Buprenorph Scr [Negative] Negative (01/30/22 11:35 AM) U mAMP Scr [Negative] Negative (01/30/22 11:35 AM) U TCA Scr [Negative] Negative (01/30/22 11:35 AM) Abs Neut Man 13.7 x10^3/mcL 13.9 x10^3/mcL *NA* *NA* (01/30/22 3:56 PM) (01/30/22 1:02 PM) Creatinine Level [0.70-1.30 1.15 mg/dL 1.43 mg/dL 1.25 mg/dL mg/dL] (01/31/22 6:58 AM) *HI* (01/30/22 10: 07 AM) (01/30/22 3:56 PM) Employed in healthcare? No *NA* (01/30/22 10:09 AM) Symptomatic as defined by No CDC? *NA* (01/30/22 10:09 AM) Hospitalized due to No COVID-19? *NA* (01/30/22 10:09 AM) In ICU? No *NA* (01/30/22 10:09 AM) Group care resident? No *NA* (01/30/22 10:09 AM) status? Not *NA* (01/30/22 10:09 AM) SARS-CoV-2(Covid19)PCR(GXpe Negative rt COVFLURSV) [Negative] (01/30/22 10:09 AM) Flu A (GXpert COVFLURSV) Negative [Negative] (01/30/22 10:09 AM) RSV (GXpert COVFLURSV) Negative [Negative] (01/30/22 10:09 AM) Flu B (GXpert COVFLURSV) Negative [Negative] (01/30/22 10:09 AM) Baso Man [0-1 %] 0 % 1 % (01/30/22 3:56 PM) (01/30/22 1:02 PM) D Dimer, (Quant.) <0.19 mg/L [0.00-0.50 mg/L] (01/31/22 8:15 AM) Eos, Auto [1.0-6.0 %] 0.9 % *LOW* (01/30/22 10:07 AM) CK [39-308 unit/L] 146 unit/L (01/30/22 3:56 PM) 1Result Comment: Sample appears [id number] Comment: Sample appears lipemic Orders for Microbiology Reports Name Date Blood Culture 01/30/22 Blood Culture 01/30/22 Microbiology Reports TEST:Blood Culture STATUS:Order in Progress BODY SITE: SOURCE:Blood COLLECTED DATE/TIME:01/30/22 5:53 PMPRELIMINARY REPORTNo growth at 24 hours.TEST:Blood Culture STATUS:Order in Progress BODY SITE: SOURCE:Blood COLLECTED DATE/TIME:01/30/22 5:50 PMPRELIMINARY REPORTNo growth at 24 hours. Vital Signs Most recent to oldest 1 2 3 [Reference Range]: Temperature Axillary 37.3 Deg C 37 Deg C [35.2-38 Deg C] (01/30/22 2:19 PM) (01/30/22 9:11 AM) Temperature Temporal Artery 36.3 Deg C 36.5 Deg C 37 D eg C [36-38 Deg C] (01/31/22 6:27 AM) (01/31/22 2:25 AM) (01/30/22 8:37 PM) Temperature Temporal Artery 98.24 Deg F (DegF) [97.3-100 Deg F] (01/30/22 6:27 PM) Peripheral Pulse Rate 74 bpm 79 bpm 93 bpm [60-100 bpm] (01/31/22 6:27 AM) (01/31/22 2:25 AM) (01/30/22 8:37 PM) Heart Rate Monitored [60-100 93 bpm 83 bpm bpm] (01/30/22 4:15 PM) (01/30/22 1:11 PM) Respiratory Rate [12-24 18 br/min 24 br/min 24 br/mi n br/min] (01/31/22 6:27 AM) (01/31/22 2:25 AM) (01/30/22 8:37 PM) Blood Pressure [90-140/60-90 114/75 mmHg 104/48 mmHg 129 /87 mmHg mmHg] (01/31/22 6:27 AM) (01/31/22 2:25 AM) (01/30/22 8:37 PM) Mean Arterial Pressure, Cuff 103 mmHg 99 mmHg 84 mmHg [65-140 mmHg] (01/30/22 8:17 PM) (01/30/22 7:16 PM) (01/30/22 6:27 PM) Mean Arterial Pressure Cuff 85 mmHg 63 mmHg 99 m mHg (01/31/22 6:27 AM) (01/31/22 2:25 AM) (01/30/22 8:37 PM) Weight 137.000 kg (01/30/22 8:56 PM) Weight Dosing 137.000 kg 149.00 kg (01/30/22 8:56 PM) (01/30/22 9:11 AM) Weight Estimated 149.00 kg (01/30/22 8:57 AM) Height 70.000 cm 178 cm (01/30/22 8:56 PM) (01/30/22 8:56 PM) Height/Length Dosing 70.000 cm 170.000 cm (01/30/22 8:56 PM) (01/30/22 9:11 AM) Body Mass Index 279.590 kg/m2 (01/30/22 8:56 PM) Height/Length Estimated 170.000 cm (01/30/22 8:57 AM) Social History Social History Type Response Tobacco Former tobacco user Tobacco Use:. Sex Male Hospital Discharge Instructions Follow Up Care01/30/2022 08:57:25With:Korey Haro MD Address: [facility] [place] [id number] When:1 [facility] Discharge instructions Kailey Cochran: PERFORM Event Display: Discharge Instructions Authored Date: [id number] LALITO ROLDAN :1975 Age:46 years Sex:Male Visit Date:01/30/2022 Primary Care Physician: Korey Haro MD Hospital Discharge Instructions We would like to thank you for allowing us to assist you with your healthcare needs. The following includes patient education materials and information regarding your injury/illness. After you leave the hospital, you may get your health information including your test results, physician notes and discharge information by accessing your Patient Portal. Your Next Steps Discharge Orders Discharge Activity Restrictions, as tolerated. Discharge Activity Restrictions, No Driving, Until follow up Discharge Diet Instruction, Regular home diet Discharge Follow Up Instructions, 01/31/22 9:14:00 EST, When following are met: Alert and awake, Follow up with PCP within 1 week. Call for appointment. Discharge after ziopatch is in place. Scheduled Future Appointments Wednesday 8:30 AM EST ?? Wednesday 9:40 AM EST ?? Follow Up Appointments Follow Up with??Korey Haro MD When:??Within 1 week Where: [facility] [address] [address]- Medications What How Much When Why Instructions Next Dose New amoxicillin-clavulanate (!- Augmentin 875 mg-125 mg oral tablet) 1 tab Oral (given by mouth) Every 12 hours Duration: 5 Days Pickup at [facility] Changed HYDROcodone-acetaminophen (HYDROcodone-acetaminophen 10 mg-325 mg oral tablet) TAKE TWO TABLETS BY MOUTH EVERY 4 HOURS NEEDED FOR PAIN ?? Changed methotrexate (methotrexate 10 mg oral tablet) 6 tabs Every week Changed zolpidem (zolpidem 10 mg oral tablet) 1 tab Oral (given by mouth) Every day as needed for not specified Unchanged albuterol (Ventolin HFA 90 mcg/ inh inhalation aerosol) 2 Puffs Inhale (breathe in) Every 4 hours as needed for other (see comment) Take as needed ?? Unchanged Durable Medical Equipment for Prescription (Duration: ) See instructions PHIL (obstructive sleep apnea) URGENT Severe Sleep Apnea Send to [facility] [ x ] Auto BIPAP ??Imax 22 ??Jama 11 ?? 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 Dispense PAP machine machine with heated tubing, humidification, and data reporting capability. ??Supplies include mask cushion (full face mask, nasal mask, or nasal pillows), headgear, disposable andnondisposable filters, hose, chin strap (IF NEEDED), humidifier supplies. ?? Please educate on machine use. Mask fit and provide on-going support as needed. Consider mask refit with Airfit F30i or Celine View ?? Unchanged magnesium oxide (magnesium oxide 250 mg oral tablet) 2 tab Oral (given by mouth) Every day Unchanged naloxone (Narcan 4 mg/ 0.1 mL nasal spray) 1 Sprays Nasal (into the nose) As needed for other (see comment) Take as needed ?? Unchanged predniSONE (predniSONE 10 mg oral tablet) 3 tab Oral (given by mouth) Every day Myositis Duration: 60 Days taper to 20 mg after one month. ?? Unchanged sildenafil (sildenafil 100 mg oral tablet) 1 tab Oral (given by mouth) Every day Unchanged tiotropium (!-Spiriva 18 mcg inhalation capsule) 1 Capsules Inhale (breathe in) Every day use two inhalations of one capsule for each dose ?? Pharmacy Information [facility]: [address], [place] [id number] [phone] Your Summary Your Care Team Admitting Physician - Clarissa Briggs NP Attending Physician - Clarissa Briggs NP Primary Care Physician - Korey Haro MD Your Diagnosis Loss of consciousness Altered mental status Leukocytosis Elevated lactic acid level Myositis Sleep disorder Discharge Vitals Temperature??(Temporal Artery) 97.3 ??F (36.3 ??C) Heart Rate??(Peripheral) 74 Respiratory Rate?? 18 Blood Pressure?? 114/75?? Height?? 70.08 in (178 cm) Height?? 70.08 in (178 cm) Weight?? 302.09 lb (137.000 kg) BMI?? 279.590 Patient Name:LALITO ROLDAN I have received this information and my questions have been answered. Patient/Machine Packer Name: Patient/Machine Packer Signature: Relationship to Patient: Witness Name/Signature: Date: Electronically Signed on: 01/31/2022 10:13 ESTSigned by:DANNIELLE hirsch Event Display: Telemetry Strips Please click on link to view image. Event Display: Telemetry Strips Please click on link to view image. Event Display: Telemetry Strips Please click on link to view image. Physician Emergency department Note Keshawn Mansfield MD: PERFORM, MODIFY, MODIFY Event Display: ED Note Physician Authored Date: [id number] LALITO ROLDAN :1975 Age:46 years Sex:Male Visit Date:01/30/2022 Primary Care Physician: Korey Haro MD Basic Information Time Seen: Keshawn Mansfield MD / 01/30/2022 08:59 Chief Complaint altered mental status, sitting talking to a friend and became unresponsive for 15 min, continues with lethargic behavior History Of Present Illness: HPI 46-year-old morbidly obese male with a history of hip and knee pain on long- term opiates, nicotine dependence, gout, and adjustment disorder presents by EMS for relatively rapid onset altered mentation in which he reportedly was minimally responsive for upwards of 15 minutes, patient accompanied by eben rlfriengrady who notes that he was in his baseline health this morning when he had the above symptoms. Throughout this episode patient was apparently responsive to voice but had a decreased LOC. Patient took a Vicodin this morning.? Medical records reviewed, patient reportedly has a ongoing myositis of unclear etiology, post COVIDetiology being considered. Patient is on methotrexate and prednisone.? M/S/F/SocHx notable for: please see HPI; remainder reviewed with patient and in chart.? ROS: Negative constitutional, eye, cardiovascular, pulmonary, GI, , MSK, skin, neurologic, psychiatric, endocrine unless noted in the HPI. ?? Exam HR 82, BP (pending), RR??14, T 37.0??C, SaO2??99% on room air. Gen:??Pleasant, appears mildly uncomfortable, fatigued and largely resting with eyes closed, however will open eyes to voice and respond appropriately.. HEENT: NC, AT, PEERL, EOMI. Resp: Clear to auscultation bilaterally, normal work of breathing, no accessory muscle usage. Card: Regular rate and rhythm with no murmurs, rubs, or gallops, extremities warm and well perfused.?? GI: Non-tender to palpation throughout all quadrants, non-distended, no rebound or guarding. : No suprapubic tenderness to palpation. MSK: No visible deformities, strength and tone without visually appreciable deficit. Skin: Normal color with no visible lesions. Neuro: alert and oriented?3, no facial asymmetry, no gaze preference, no slurring of speech. CN II-III: pupils equal and reactive (3->2mm bilaterally); III, IV, : EOMI, V1-V3: sensation to touch bilaterally intact; VII: no facial asymmetry (frown / smile); VIII: no nystagmus; X: phonation intact, uvula midline; XI: trapezius 5/5 bilaterally, XII: tongue midline. Cerebellar: no pronator drift, [id number] testing without dysmetria bilaterally. 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 Psych: Mood and affect appropriate. ?? Labs?? WBC 14.8, Hb 15.3, sodium 134, potassium 4.1, glucose 168, troponin 8.6, EtOH <5, influenza A, influenza B, RSV, COVID-19 negative. lactic acid 2.9, procalcitonin < 0.15 UDS with opiates. Urinalysis, COVID-19, RSV, influenza pending. Imaging EKG: SR at 86 BPM, QRS 109 msec, QTc 449 msec, no ST-segment elevations or depressions, T-wave inversions or new LBBB. ?? CXR:??No acute cardiopulmonary abnormality. ?? CT Head:??No acute intracranial abnormality. ?? CT Abd/Pelvis:?? 1. No acute findings.?? 2. Sigmoid/descending colonic diverticulosis. ?? MDM Previous chart, nursing note, labs, imaging, and vitals reviewed.?? A:??46-year-old morbidly obese male with a history of hip and knee pain on long-term opiates, nicotine dependence, gout, and adjustment disorder presents by EMS for relatively rapid onset altered mentation in which he reportedly was minimally responsive for upwards of 15 minutes, patient accompanied by girlfriend who notes that he was in his baseline health this morning when he had the above symptoms.? ED Course:?0.4 mg Narcan ordered for trial of opiate antagonist following initial evaluation. ?10:22 AM, improved level of consciousness. Per significant other is not yet at baseline. ?12:08 PM, patient now at baseline. Denies taking Vicodin this morning. Notes that he has poor recollection of this morning events and was groggy and confused throughout. Will recheck lactic, CBC, 2-hour troponin, and acetaminophen level (patient notes that sometimes he takes excessive Vicodin), has no other opiates prescribed.?Patient held in the ER with a consistently rising white blood cell count and lactic acid (measured 3 times, CRP also elevated at 8.26. CK within normal limits at 146. Serial troponins negative. Acetaminophen below detection, this strongly suggests against excessive Vicodin this morning. EtOH negative. Discussed case with the hospitalist. Will obtain a CT scan of the abdomen as well as urinalysisand blood cultures. Patient will be admitted for observation given his brief altered. With persistently worsening laboratory values. ?2 g cefepime and a total of 2 L NS given. ?Etiology of the patient's brief altered episode is currently unclear. Strongly doubt seizure given the laboratory value trends above, absence of incontinence, known seizure disorder, or further suggestive symptoms. Patient has been entirely well-appearing throughout his ED course without clinical features of infection and no features of meningitis or encephalitis. Given the absence of back pain,doubt an occult spinal infection. The patient's altered period could be due to an arrhythmia, infection, or seizure, however these are all unclear at the present time. ?? Disposition:??admitted for further care. ?? Impression: Resolved AMS, leukocytosis and elevated lactic acid. Physical Exam Vitals & Measurements T:??36.8?C ??(Temporal Artery)?? HR:??95??(Peripheral)?? RR:??16?? BP:??117/68?? SpO2:??94%?? HT:??170.000??cm?? WT:??149.00??kg??(Estimated)?? Pain Score:??1?? O2 Flow Rate:??2?? O2 Therapy:??Room air?? Procedure No Qualifying Data Assessment/Plan Ordered: Blood Culture, Blood, Stat collect, ST - Stat, 01/30/22 16:32:00 EST, Once, Nurse collect, Print Label Blood Culture, Blood, Stat collect, ST - Stat, 01/30/22 16:32:00 EST, Once, Nurse collect, Print Label SARS-CoV-2 (COVID-19) RNA (ID Now), Nasal, Routine Collect, 01/30/22 16:35:00 EST, Once, Nurse collect, Print Label, No, No, No, No, No, Not Urinalysis with Microscopic, Urine, Stat Collect, 01/30/22 16:32:00 EST, Once, Nurse collect, PrintLabel Medication Reconciliation Unchanged albuterol (Ventolin HFA 90 mcg/inh inhalation aerosol)2 Puffs Inhale (breathe in) every 4 hours as needed other (see comment). Take as needed. Refills: 3. ?? 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 Dispense PAP machine machine with heated tubing, humidification, and data reporting capability. Supplies include mask cushion (full face mask, nasal mask, or nasal pillows), headgear, disposable and nondisposable filters, hose, chin strap (IF NEEDED), humidifier supplies. Please educate on machine use. Mask fit and provide on- going support as needed. Consider mask refit with Airfit F30i or Vrvana View. Refills: 0. ?? HYDROcodone-acetaminophen (HYDROcodone-acetaminophen 10 mg-325 mg oral tablet)2 tabs Oral (given by mouth) every 4 hours as needed as needed for pain. TAKE TWO TABLETS BY MOUTH EVERY 4 HOURS NEEDED FOR PAIN. Refills: 0. ?? HYDROcodone-acetaminophen (HYDROcodone-acetaminophen 10 mg-325 mg oral tablet)2 tabs Oral (given by mouth) every 4 hours as needed as needed for pain. TAKE TWO TABLETS BY MOUTH EVERY 4 HOURS NEEDED FOR PAIN. Refills: 0. ?? HYDROcodone-acetaminophen (HYDROcodone-acetaminophen 10 mg-325 mg oral tablet)TAKE TWO TABLETS BY MOUTH EVERY 4 HOURS NEEDED FOR PAIN. ?? magnesium oxide (magnesium oxide 250 mg oral tablet)2 tab Oral (given by mouth) every day. ?? naloxone (Narcan 4 mg/0.1 mL nasal spray)1 Sprays Nasal (into the nose) as needed other (see comment). Take as needed. ?? predniSONE (predniSONE 10 mg oral tablet)3 tab Oral (given by mouth) every day for 60 Days. taper to20 mg after one month.. Refills: 0. ?? sildenafil (sildenafil 100 mg oral tablet)1 tab Oral (given by mouth) every day. ?? tiotropium (!-Spiriva 18 mcg inhalation capsule)1 Capsules Inhale (breathe in) every day. use two inhalations of one capsule for each dose. Refills: 0. ?? zolpidem (zolpidem 10 mg oral tablet)1 tab Oral (given by mouth) every day as needed not specified. Refills: 0. ?? zolpidem (zolpidem 10 mg oral tablet)1 tab Oral (given by mouth) every day as needed not specified. Refills: 0. ?? zolpidem (zolpidem 10 mg oral tablet)1 tab Oral (given by mouth) every day as needed not specified. Problem List/Past Medical History Ongoing Adjustment disorder Arthralgia of the ankle and/or foot Carpal tunnel syndrome Chronic bilateral low back pain Chronic pain Contact dermatitis due to plants Diverticulitis of large intestine Elevated blood-pressure reading without diagnosis of hypertension Ganglion cyst Gout Hip pain History of insomnia Hypersomnia Influenza Insomnia Knee pain Long-term drug therapy Low back pain Lumbosacral radiculopathy Myositis Nicotine dependence Obesity Pharyngitis Sciatica Shoulder joint pain Sleep disorder Snoring Therapeutic drug monitoring assay Historical No qualifying data Procedure/Surgical History ???Orthopedic Surgery (07/26/2006)???Left hemicolectomy (03/08/2005) Medication Administration Given cefepime, IV Piggyback Narcan, 0.4 mg, IV Push NS bolus, 1000 mL, IV Piggyback Allergies iodine topical??(Urticaria) erythromycin??(Urticaria) Social History Alcohol Current, 1-2 times per month Electronic Cigarette/Vaping Electronic Cigarette Use: Never. Employment/School Unemployed Home/Environment Lives with Children. Nutrition/Health Diet: Regular. Caffeine intake amount: raghu caff with H20. Substance Use Never Tobacco Former tobacco user Tobacco Use:. Family History Healthy adult: Mother and Father. Lab Results CBC and Differential?? LATEST RESULTS?? HISTORICAL RESULTS?? WBC?? 01/30/22 15:56?? 15.8 ??High?? 01/14/22?? 13.4 ??High?? RBC?? 01/30/22 15:56?? 5.5?? 01/14/22?? 5.3?? Hgb?? 01/30/22 15:56?? 16.2?? 01/14/22?? 15.3?? Hct?? 01/30/22 15:56?? 48.6?? 01/14/22?? 46.1?? MCV?? 01/30/22 15:56?? 87.7?? 01/14/22?? 87.5?? MCH?? 01/30/22 15:56?? 29.2?? 01/14/22?? 29.0?? MCHC?? 01/30/22 15:56?? 33.3?? 01/14/22?? 33.2?? RDW-CV?? 01/30/22 15:56?? 14.4?? 01/14/22?? 13.8?? Platelets?? 01/30/22 15:56?? 266?? 01/14/22?? 262?? Neutro Auto?? 01/30/22 10:07?? 73.6?? 12/09/21?? 67.2?? Lymph Auto?? 01/30/22 10:07?? 18.2 ??Low?? 12/09/21?? 23.5?? [place] Auto?? 01/30/22 10:07?? 5.4?? 12/09/21?? 6.2?? Eos, Auto?? 01/30/22 10:07?? 0.9 ??Low?? 12/09/21?? 1.9?? Basophil Auto?? 01/30/22 10:07?? 0.4?? 12/09/21?? 0.3?? Imm Gran Auto?? 01/30/22 10:07?? 1.5 ??High?? 12/09/21?? 0.9?? Neutro Absolute?? 01/30/22 10:07?? 10.9?? 12/09/21?? 6.1?? Segs Man?? 01/30/22 15:56?? 87 ??High?? 01/14/22?? 89 ??High?? Lymph Man?? 01/30/22 15:56?? 11 ??Low?? 01/14/22?? 7 ??Low?? [place] Man?? 01/30/22 15:56?? 2?? 01/14/22?? 3?? Eos Man?? 01/30/22 15:56?? 0?? 01/14/22?? 1?? Baso Man?? 01/30/22 15:56?? 0?? 01/14/22?? 0?? Band Man?? 01/30/22 15:56?? 0?? 01/14/22?? 0?? Abs Neut Man?? 01/30/22 15:56?? 13.7?? 01/14/22?? 11.9?? RBC Morph?? 01/30/22 15:56?? Normal?? 01/14/22?? Abnormal? Routine Chemistry?? LATEST RESULTS?? HISTORICAL RESULTS?? Sodium Level?? 01/30/22 15:56?? 136?? 01/22/22?? 135 ??Low?? Potassium Level?? 01/30/22 15:56?? 4.6?? 01/22/22?? 4.5?? Chloride Level?? 01/30/22 15:56?? 97 ??Low?? 01/22/22?? 97 ??Low?? CO2?? 01/30/22 15:56?? 28?? 01/22/22?? 28?? Alk Phos?? 01/30/22 15:56?? 59?? 01/14/22?? 55?? AST?? 01/30/22 15:56?? 71 ??High?? 01/14/22?? 40 ??High?? ALT?? 01/30/22 15:56?? 114 ??High?? 01/14/22?? 88 ??High?? BUN?? 01/30/22 15:56?? 23 ??High?? 01/22/22?? 27 ??High?? Glucose Level?? 01/30/22 15:56?? 259 ??High?? 01/22/22?? 323 ??High?? Creatinine Level?? 01/30/22 15:56?? 1.43 ??High?? 01/22/22?? 1.32 ??High?? eGFR AA?? 01/30/22 15:56?? 61?? 01/22/22?? 67?? eGFR Non-AA?? 01/30/22 15:56?? 61?? 01/22/22?? 67?? Calcium Level?? 01/30/22 15:56?? 8.6?? 01/22/22?? 9.3?? Protein Total?? 01/30/22 15:56?? 7.5?? 01/14/22?? 7.3?? Albumin Level?? 01/30/22 15:56?? 3.6?? 01/14/22?? 3.4?? Bilirubin Total?? 01/30/22 15:56?? 0.7?? 01/14/22?? 0.5?? Lactic Acid Lvl?? 01/30/22 15:56?? 4.5 ??High? CRP High Sens?? 01/30/22 15:56?? 8.26 ??High?? 08/07/21?? 23.58 ??High? Cardiac Isoenzymes?? LATEST RESULTS?? HISTORICAL RESULTS?? CK?? 01/30/22 15:56?? 146?? 01/14/22?? 249?? Troponin-I?? 01/30/22 13:02?? 6.5? Endocrinology?? LATEST RESULTS?? Procalcitonin?? 01/30/22 10:07?? <0.15? Serum Toxicology?? LATEST RESULTS?? Acetaminophen Level?? 01/30/22 13:02?? <10 ??Low?? Ethanol Level?? 01/30/22 10:07?? <5? Urine Toxicology?? LATEST RESULTS?? HISTORICAL RESULTS?? U Amph Scrn?? 01/30/22 11:35?? Negative?? 01/19/22?? Negative?? U Lexus Scrn?? 01/30/22 11:35?? Negative?? 01/19/22?? Negative?? U Benzodia Scrn?? 01/30/22 11:35?? Negative?? 01/19/22?? Negative?? U Buprenorph Scr?? 01/30/22 11:35?? Negative?? 01/19/22?? Negative?? U Cocaine Scrn?? 01/30/22 11:35?? Negative?? 01/19/22?? Negative?? U TCA Scr?? 01/30/22 11:35?? Negative?? 01/19/22?? Negative?? U THC Scr?? 01/30/22 11:35?? Negative?? 01/19/22?? Negative?? U mAMP Scr?? 01/30/22 11:35?? Negative?? 01/19/22?? Negative?? U Methadone Scr?? 01/30/22 11:35?? Negative?? 01/19/22?? Negative?? U Opiate Scrn?? 01/30/22 11:35?? Positive Abnormal?? 01/19/22?? Positive Abnormal?? U Oxy Scrn?? 01/30/22 11:35?? Negative?? 01/19/22?? Negative?? U PCP Scrn?? 01/30/22 11:35?? Negative?? 01/19/22?? Negative?? U PPX Scr?? 01/30/22 11:35?? Negative?? 01/19/22?? Negative? Infectious Disease?? LATEST RESULTS?? Employed in healthcare??? 01/30/22 10:09?? No?? Symptomatic as defined by CDC??? 01/30/22 10:09?? No?? Hospitalized due to COVID-19??? 01/30/22 10:09?? No?? In ICU??? 01/30/22 10:09?? No?? Group care resident??? 01/30/22 10:09?? No?? status??? 01/30/22 10:09?? Not ?? SARS-CoV-2(Covid19)PCR([facility]Xpert COVFLURSV)?? 01/30/22 10:09?? Negative?? Flu A ([facility]pert COVFLURSV)?? 01/30/22 10:09?? Negative?? Flu B ([facility]pert COVFLURSV)?? 01/30/22 10:09?? Negative?? RSV ([facility]pert COVFLURSV)?? 01/30/22 10:09?? Negative? Electronically Signed on 01/30/22 06:48 PM Keshawn Mansfield MD Electronically Signed on 01/30/22 07:13 PM Keshawn Mansifeld MD Electronically Signed on 01/30/22 07:14 PM Keshawn Mansfield MD History and physical note Clarissa Briggs CORRECTIONS NURSE: PERFORM, MODIFY Brigitte, Clarissa Berwick CORRECTIONS NURSE: MODIFY, MODIFY Brigitte, Clarissa Berwick CORRECTIONS NURSE: MODIFY, MODIFY Brigitte, Clarissa Berwick CORRECTIONS NURSE: MODIFY, MODIFY Brigitte, Clarissa Berwick CORRECTIONS NURSE: MODIFY, MODIFY Brigitte, Clarissa Berwick CORRECTIONS NURSE: MODIFY, MODIFY Brigitte, Clarissa Berwick CORRECTIONS NURSE: MODIFY, MODIFY Brigitte, Clarissa Berwick CORRECTIONS NURSE: MODIFY, MODIFY Brigitte, Clarissa Berwick CORRECTIONS NURSE: MODIFY, MODIFY Brigitte, Clarissa Berwick CORRECTIONS NURSE: MODIFY, MODIFY Brigitte, Clarissa Berwick CORRECTIONS NURSE: MODIFY Jori Rey MD: MODIFY Event Display: History and Physical Authored Date: [id number] LALITO ROLDAN :1975 Age:46 years Sex:Male Visit Date:01/30/2022 Primary Care Physician: Korey Haro MD Chief Complaint altered mental status, sitting talking to a friend and became unresponsive for 15 min, continues with lethargic behavior History of Present Illness 36-year-old patient presented to the emergency room with past medical and surgical history significant for long-term drug therapy, lumbar sacral radiculopathy, myositis, nicotine dependence, obese, pharyngitis, sciatica, sleep disturbance, diverticulitis, carpal tunnel syndrome, low back pain, orthopedic surgery and left hemicolectomy.?? This patient presented to the emergency room with altered mental status.?? Patient and his significant other stated that at 8 AM patient was sitting in a chair when the significant other noted that the patient head and neck dropped to his chest as if he was passing out, the significant other attempted to wake patient up patient was unable to wake up and she called the patient's children and he came into the house, the significant order to check patient's oxygen and it was noted at 90% in room air despite the fact that it was 90% she added 2 L of nasal cannula oxygen.?? Patient is on home O2 as needed.?? When the patient's children presented to the house the hip got patient into a truck and drove patient to the emergency room.?? When patient arrived to the ED work-up done, WBC was 15.8, RBC 5.5, hemoglobin 16.2, hematocrit 48.6, platelet 266, sodium 136, potassium 4.6, BUN 23, creatinine 1.4 and lactic acid was 4.5. ED provider treated patient with cefepime and and 2 L of IV fluid then talk to the morning hospitalist on admitting patient who was agreed to keep patient's overnight on observation on IV fluid and antibiotic while blood culture pending. Review of Systems A 14 points review of system completed, all pertinent findings are negative except as stated above in HPI. Physical Exam Vitals & Measurements T:??36.8?C ??(Temporal Artery)?? TMIN:??36.8?C ??(Temporal Artery)?? TMAX:??37.3?C ??(Axillary)?? HR:??89??(Peripheral)?? RR:??18?? BP:??128/85?? SpO2:??96%?? HT:??170.000??cm?? WT:??149.00??kg??(Estimated)?? Pain Score:??1?? O2 Flow Rate:??2?? O2 Therapy:??Room air?? General appearance: Patient appears well-nourished, well-developed, seems to be in no acute distress at this time. HEENT: Normocephalic, atraumatic, pupils are equal, round, reactive to light and accommodation, sclera and conjunctive is normal, nasal septum is patent, nasal mucosa is normal, lips normal, oral mucosa is pink and moist, neck is supple, trachea is midline. Respiratory: Lung sounds are??diminished to all lung leyva with poor air entry. Cardiovascular: S1 and S2 is present, no gallop or third sound noted. Abdomen: Obese, soft, nontender, bowel sound present all 4 quadrants. Skin: Skin is intact, no redness or lesion noted. Extremities: Bilateral lower extremities range of motion's are equal, movements are flexible. : Deferred Neurology: Alert and oriented x4, no neurologic deficit, cranial nerve II to X are normal. Psych: Calm, no distress, normal affect. Assessment/Plan Altered mental status??R41.82 Altered mental status on presentations to the emergency room however after patient's was treated with cefepime and 2 L of IV fluid along with 2 L of nasal cannula oxygen's he seems to regain consciousness and became alert and oriented x4 however giving the fact that his mental status was altered likely the fact that patient's lactic acid and WBC is elevated, CT of the head was done to rule out if there is any possible stroke the symptoms to show no intracranial abnormality.?? We will monitor patientwith neuro check every 4 hours and aiming to treat the underlying cause once identified. ?? Syncope Patient with syncopal episode and loss of consciousness for 2 to 3 minutes as well as some chest tightness??earlier in the day. ??Will obtain CT of the chest to rule out PE. ??Continue to monitor on telemetry. ??If nothing seen on telemetry will discharge with event monitor.?? Echocardiogram will be o btained??outpatient as he is adamant on returning home today. Ordered: [facility] Place in Observation, Observation, Observation, Clarissa Briggs CORRECTIONS NURSE, 01/30/22 20:01:00 EST, 01/30/22 20:01:00 EST, 01/30/22 20:01:00 EST, 1 midnight or less ?? Elevated lactic acid level??R79.89 Elevated lactic acid of 4.5 which is likely related to the altered mental status, 2 L of normal saline was given, will continue normal saline at 150 mm/h and repeat lactic acid this morning at 0700. Ordered: [facility] Place in Observation, Observation, Observation, Clarissa Briggs CORRECTIONS NURSE, 01/30/22 20:01:00 EST, 01/30/22 20:01:00 EST, 01/30/22 20:01:00 EST, 1 midnight or less ?? Leukocytosis??D72.829 Leukocytosis as evidence of WBC of 15.8, checks x-ray was done it shows no cardiopulmonary infectionnoted at this time, COVID-negative, urinalysis negative, and no open wound noted so it is likely that WBC may be elevated giving the fact that patient's body was, sitting for the altered mental status e pisode.?? The first dose of cefepime was giving in the ED, will continue cefepime, blood culture pending, no fever.?? We will continue monitor patient closely. ?? DVT prophylactic with Lovenox GI prophylactic with PPI CODE STATUS: Full code Home medication reconciled and controlled substance and benzo on hold right now to monitor and assess patient's mental status accurately. Ordered: PSO Place in Observation, Observation, Observation, Clarissa Briggs CORRECTIONS NURSE, 01/30/22 20:01:00 EST, 01/30/22 20:01:00 EST, 01/30/22 20:01:00 EST, 1 midnight or less ?? Orders: acetaminophen, 650 mg = 2 tab, Oral, Tab, every 6 hr, PRN pain, First Dose: 01/30/22 20:17:00 EST, Routine enoxaparin, 40 mg = 0.4 mL, Subcutaneous, Soln, every 24 hr, First Dose: 01/30/22 20:17:00 EST, NOW lidocaine 1% injectable solution, 5 mg 0.5 mL, Intradermal, Soln, As Directed, PRN other (see comment), First Dose: 01/30/22 20:17:00 EST, Routine ondansetron, 4 mg = 2 mL, IV Push, Soln, every 6 hr, PRN nausea/vomiting, First Dose: 01/30/22 20:17:00 EST, Routine pantoprazole, 40 mg = 1 EA, IV Push, Powder-Inj, Daily, First Dose: 01/30/22 6:00:00 EST, Routine Normal Saline Flush, 10 mL, IV Push, Soln, every 12 hr (sy), First Dose: 01/30/22 21:00:00 EST, Routine Sodium Chloride 0.9% 1,000 mL, Total Volume (mL): 1,000, 1,000 mL, Soln, IV, 150/hr, Start Date: 01/30/22 20:17:00 EST, 149 kg, Populate Charting Weight From Order, 2.65, m2 Sodium Chloride 0.9% 1,000 mL, Total Volume (mL): 1,000, 1,000 mL, Soln-IV, IV, 30 mL/hr, Start Date: 01/30/22 20:17:00 EST, 149 kg, Populate Charting Weight From Order, 2.65, m2 Basic Metabolic Panel, Blood, Routine, 01/31/22 7:00:00 EST, every morning, for 3 days, Lab Collect Blood Gas Arterial, Blood, Stat, 01/30/22 20:17:00 EST, Once, Lab Collect Cardiac Monitoring, 01/30/22 20:17:00 EST, Telemetry CBC w/o Diff, Blood, Routine, 01/31/22 7:00:00 EST, every morning, for 3 days, Lab Collect Neurological Checks, 01/30/22 20:17:00 EST, every 4 hr for 4 times, Stop date 01/31/22 12:59:00 EST, every 4 hrs, 01/30/22 21:00:00 EST Oxygen Therapy, SpO2 goal 90% or greater, PRN PT Evaluation and Treatment Acute., 01/30/22 20:17:00 EST, Once Resuscitation Status, 01/30/22 20:17:00 EST, Full Code RT Eval and Treat Protocol, Stop date 01/30/22 20:17:00 EST Saline Lock Insert, 01/30/22 20:17:00 EST, Once, Stop date 01/30/22 20:17:00 EST Up ad Sanjuana, 01/30/22 20:17:00 EST, Constant Order Vital Signs, 01/30/22 20:17:00 EST, Constant order, every 4 hrs Images ?? URL This document has an image ?? XR Chest 1 View PROCEDURE INFORMATION:?? Exam: XR Chest?? Exam date and time: 01/30/2022 9:39 AM?? Age: 46 years old?? Clinical indication: SOB? TECHNIQUE:?? Imaging protocol: Radiologic exam of the chest.?? Views: 1 view.? COMPARISON:?? CR XR CHEST 1 VW 03/27/2021 1:33 PM? FINDINGS:?? Lungs: The lungs are clear and well aerated bilaterally. There is no?? consolidation, infiltrate, or pulmonary edema. The pulmonary?? vasculature is normal in caliber.?? Pleural spaces: Unremarkable. No pleural effusion or pneumothorax.?? Heart/Mediastinum: Heart size is normal. Cardiomediastinal contours?? are stable and satisfactory.?? Bones/joints: Degenerative changes. No acute osseous abnormality.? IMPRESSION:?? No acute cardiopulmonary abnormality.? Report signed by: Merle Cesar On 01/30/2022 ??09:44:41 ?? Result type:?XR Chest 1 View Result date:?January 30, 2022 9:39 EST Result status:?Auth (Verified) Result title:?XR Chest 1 View Performed by:?Merle Cesar MD on January 30, 2022 9:39 EST Verified by:?Merle Cesar MD on January 30, 2022 9:39 EST Encounter info:?[id number], [facility], Observation, 01/30/2022 -?? Contributor system:?[email or web address] ? * Final Report * ?? CT Abdomen and Pelvis w/o Contrast PROCEDURE INFORMATION:?? Exam: CT Abdomen And Pelvis Without Contrast?? Exam date and time: 01/30/2022 4:44 PM?? Age: 46 years old?? Clinical indication: Altered mentation (resolved), rising lactic acid?? and worsening leukocytosis, etiology unclear.? TECHNIQUE:?? Imaging protocol: Computed tomography of the abdomen and pelvis?? without contrast.?? Radiation optimization: All CT scans at this facility use at least?? one of these dose optimization techniques: automated exposure?? control; mA and/or kV adjustment per patient size (includes targeted?? exams where dose is matched to clinical indication); or iterative?? reconstruction.? COMPARISON:?? CT ABD/PELVIS W/ CONTRAST 03/15/2018 6:36 PM? FINDINGS:?? Liver: Unremarkable.?? Gallbladder and bile ducts: Unremarkable.?? Pancreas: Unremarkable.?? Spleen: Unremarkable.?? Adrenal glands: Unremarkable.?? Kidneys and ureters: No stones. No hydronephrosis.?? Stomach and bowel: There are sigmoid/descending colonic diverticuli.?? No dilated loops of bowel to suggest obstruction.?? Appendix: No evidence of appendicitis.? Intraperitoneal space: No free air. No significant fluid collection.?? Vasculature: No abdominal aortic aneurysm.?? Lymph nodes: No enlarged lymph nodes.?? Urinary bladder: Unremarkable as visualized.?? Reproductive: Unremarkable as visualized.?? Bones/joints: There is a right hip arthroplasty.?? Soft tissues: Unremarkable.? IMPRESSION:?? 1. No acute findings.?? 2. Sigmoid/descending colonic diverticulosis.? Report signed by: Rivera Malcolm On 01/30/2022 ??17:16:08 ? URL This document has an image ?? Result type:?CT Abdomen and Pelvis w/o Contrast Result date:?January 30, 2022 16:44 EST Result status:?Auth (Verified) Result title:?CT Abdomen and Pelvis w/o Contrast Performed by:?Rivera Malcolm MD on January 30, 2022 16:44 EST Verified by:?Rivera Malcolm MD on January 30, 2022 16:44 EST Encounter info:?[id number], [facility], Observation, 01/30/2022 -?? Contributor system:?[email or web address]? * Final Report * ? URL This document has an image ?? CT Brain/Head w/o Contrast PROCEDURE INFORMATION:?? Exam: CT Head Without Contrast?? Exam date and time: 01/30/2022 9:31 AM?? Age: 46 years old?? Clinical indication: AMS (non-focal exam), sudden onset? TECHNIQUE:?? Imaging protocol: Computed tomography of the head without contrast.?? Radiation optimization: All CT scans at this facility use at least?? one of these dose optimization techniques: automated exposure?? control; mA and/or kV adjustment per patient size (includes targeted?? exams where dose is matched to clinical indication); or iterative?? reconstruction.? COMPARISON:?? No relevant prior studies available.? FINDINGS:?? Brain: No intracranial hemorrhage, mass effect, midline shift, or?? extra-axial collection. No acute territorial infarct. Sulci are?? normal in size for patient's age.?? Cerebral ventricles: Normal in size for patient's age.?? Paranasal sinuses: The paranasal sinuses are clear bilaterally,?? without air-fluid levels.?? Mastoid air cells: The mastoid air cells are clear bilaterally.? Bones/joints: Unremarkable. ?? Soft tissues: Extracranial soft tissues are unremarkable.? IMPRESSION:?? No acute intracranial abnormality. ?? Report signed by: Merle Cesar On 01/30/2022 ??09:46:41 ?? Result type:?CT Brain/Head w/o Contrast Result date:?January 30, 2022 9:31 EST Result status:?Auth (Verified) Result title:?CT Brain/Head w/o Contrast Performed by:?Merle Cesar MD on January 30, 2022 9:31 EST Verified by:?Merle Cesar MD on January 30, 2022 9:31 EST Encounter info:?[id number], [facility], Observation, 01/30/2022 -?? Contributor system:?[email or web address] Problem List/Past Medical History Ongoing Adjustment disorder Arthralgia of the ankle and/or foot Carpal tunnel syndrome Chronic bilateral low back pain Chronic pain Contact dermatitis due to plants Diverticulitis of large intestine Elevated blood-pressure reading without diagnosis of hypertension Ganglion cyst Gout Hip pain History of insomnia Hypersomnia Influenza Insomnia Knee pain Long-term drug therapy Low back pain Lumbosacral radiculopathy Myositis Nicotine dependence Obesity Pharyngitis Sciatica Shoulder joint pain Sleep disorder Snoring Therapeutic drug monitoring assay Historical No qualifying data Procedure/Surgical History ???Orthopedic Surgery (07/26/2006)???Left hemicolectomy (03/08/2005) Medications Inpatient acetaminophen, 650 mg= 2 tab, Oral, every 6 hr, PRN enoxaparin, 40 mg= 0.4 mL, Subcutaneous, every 24 hr lidocaine 1% injectable solution, 5 mg= 0.5 mL, Intradermal, As Directed, PRN Normal Saline Flush, 10 mL, IV Push, every 12 hr (sy) ondansetron, 4 mg= 2 mL, IV Push, every 6 hr, PRN pantoprazole, 40 mg= 1 EA, IV Push, Daily Sodium Chloride 0.9% 1,000 mL, 1000 mL, IV Sodium Chloride 0.9% 1,000 mL, 1000 mL, IV Home !-Spiriva 18 mcg inhalation capsule, 18 mcg= 1 cap, Inhale, Daily Duration: , See instructions HYDROcodone-acetaminophen 10 mg-325 mg oral tablet, 2 tabs, Oral, every 4 hr, PRN HYDROcodone-acetaminophen 10 mg-325 mg oral tablet HYDROcodone-acetaminophen 10 mg-325 mg oral tablet, 2 tabs, Oral, every 4 hr, PRN magnesium oxide 250 mg oral tablet, 500 mg= 2 tab, Oral, Daily Narcan 4 mg/0.1 mL nasal spray, 1 sprays, Nasal, PRN predniSONE 10 mg oral tablet, 30 mg= 3 tab, Oral, Daily sildenafil 100 mg oral tablet, 100 mg= 1 tab, Oral, Daily Ventolin HFA 90 mcg/inh inhalation aerosol, 180 mcg= 2 puffs, Inhale, every 4 hr, PRN, 3 refills zolpidem 10 mg oral tablet, 10 mg= 1 tab, Oral, Daily, PRN zolpidem 10 mg oral tablet, 10 mg= 1 tab, Oral, Daily, PRN zolpidem 10 mg oral tablet, 10 mg= 1 tab, Oral, Daily, PRN Allergies iodine topical??(Urticaria) erythromycin??(Urticaria) Social History Alcohol [...] 12/31/2016 Recorded tetanus/diphth/pertuss (Tdap) adult/adol 04/24/2011 Recorded [1]??CT Brain/Head w/o Contrast; Merle Cesar MD 01/30/2022 09:31 EST Electronically Signed on 01/31/22 06:23 AM Clarissa Briggs NP Electronically Signed on 01/31/22 07:58 AM Jori Rey MD Reviewed by: Clarissa Briggs NP, Zabi MD Discharge summary Jori Rey MD: PERFORM Event Display: Discharge Summary Authored Date: [id number] LALITO ROLDAN :1975 Age:46 years Sex:Male Visit Date:01/30/2022 Primary Care Physician: Korey Haro MD Hospital Course The patient is a 46-year-old male who presented to the emergency department on 01/30/2022 after having altered mental status. ??According to the significant other patient had lost consciousness for 2 to 3 minutes and then was altered for approximately 2 to 3 hours afterward. ??There was no seizure-like activity during that time. ??The patient stated that he did not have any palpitations. ??He did report having some chest tightness initially the day prior however that had resolved and D-dimer is negative thus PE looks less likely. ??He was hospitalized for the syncopal episode as well as for some altered mental status as well as elevated lactic acid and leukocytosis. ??No signs of infection present. ??Lactic acid may be due to poor clearance of the liver as he has transaminitis likely related to fatty liver disease. ??At the time of discharge patient was stable to return home. ??Patient was offered to stay for echocardiogram however this would not be able to be completed until Wednesday and patient would like to return home and do this on outpatient basis. ??Patient will be discharged with Zio patch to rule out any underlying cardiac arrhythmias that may have led to a syncopal event. ??At the time of discharge patient was stable to return home. ??Patient will require follow-up with his PCP within 1 week. Physical Exam Vitals & Measurements T:??36.3?C ??(Temporal Artery)?? TMIN:??36.3?C ??(Temporal Artery)?? TMAX:??37.3?C ??(Axillary)?? HR:??74??(Peripheral)?? RR:??18?? BP:??114/75?? SpO2:??95%?? HT:??178??cm?? HT:??178??cm?? WT:??137.000??kg?? BMI:??279.590?? Pain Score:??0?? O2 Therapy:??Room air?? General appearance: 46-year-old male, obese, seems to be in no acute distress at this time. HEENT: Normocephalic, atraumatic, pupils are equal, round, reactive to light and accommodation, sclera and conjunctive is normal, nasal septum is patent, nasal mucosa is normal, lips normal, oral mucosa is pink and moist, neck is supple, trachea is midline. Respiratory: Lung sounds are??diminished to all lung leyva with poor air entry. Cardiovascular: S1 and S2 is present, no gallop or third sound noted, no murmurs appreciated. Abdomen: Obese, soft, nontender, bowel sound present all 4 quadrants. Skin: Skin is intact, no redness or lesion noted. Extremities: Bilateral lower extremities range of motion's are equal, movements are flexible. : Deferred Neurology: Alert and oriented x4, no neurologic deficit, cranial nerve II to X are normal. Psych: Calm, no distress, normal affect. Medications Inpatient acetaminophen, 650 mg= 2 tab, Oral, every 6 hr, PRN cefepime enoxaparin, 40 mg= 0.4 mL, Subcutaneous, every 24 hr lidocaine 1% injectable solution, 5 mg= 0.5 mL, Intradermal, As Directed, PRN magnesium oxide, 400 mg= 1 tab, Oral, Daily melatonin 3 mg oral tablet, 9 mg= 3 tab, Oral, every night at bedtime Normal Saline Flush, 10 mL, IV Push, every 12 hr (sy) ondansetron, 4 mg= 2 mL, IV Push, every 6 hr, PRN pantoprazole, 40 mg= 1 EA, IV Push, Daily predniSONE, 30 mg= 3 tab, Oral, Daily Sodium Chloride 0.9% 1,000 mL, 1000 mL, IV Sodium Chloride 0.9% 1,000 mL, 1000 mL, IV tiotropium 2.5 mcg/inh inhalation aerosol, 5 mcg, Inhale, Daily RT Ventolin HFA 90 mcg/inh inhalation aerosol, 2 puffs, Inhale, every 4 hr, PRN Home !-Augmentin 875 mg-125 mg oral tablet, 1 tab, Oral, every 12 hr !-Spiriva 18 mcg inhalation capsule, 18 mcg= 1 cap, Inhale, Daily Duration: , See instructions HYDROcodone-acetaminophen 10 mg-325 mg oral tablet magnesium oxide 250 mg oral tablet, 500 mg= 2 tab, Oral, Daily methotrexate 10 mg oral tablet, 6 tabs, every week Narcan 4 mg/0.1 mL nasal spray, 1 sprays, Nasal, PRN predniSONE 10 mg oral tablet, 30 mg= 3 tab, Oral, Daily sildenafil 100 mg oral tablet, 100 mg= 1 tab, Oral, Daily Ventolin HFA 90 mcg/inh inhalation aerosol, 180 mcg= 2 puffs, Inhale, every 4 hr, PRN, 3 refills zolpidem 10 mg oral tablet, 10 mg= 1 tab, Oral, Daily, PRN Procedure/Surgical History ???Orthopedic Surgery (07/26/2006)???Left hemicolectomy (03/08/2005) Social History Alcohol Current, 1-2 times per month Electronic Cigarette/Vaping Electronic Cigarette Use: Never. Employment/School Unemployed Home/Environment Lives with Children. Nutrition/Health Diet: Regular. Caffeine intake amount: raghu caff with H20. Substance Use Never Tobacco Former tobacco user Tobacco Use:. Discharge Plan Discharge planning greater than 30 minutes. 1.??Loss of consciousness??R40.20 The patient is a 46-year-old male who presented to the emergency department on 01/30/2022 after having altered mental status. ??According to the significant other patient had lost consciousness for 2 to 3 minutes and then was altered for approximately 2 to 3 hours afterward. ??There was no seizure-like activity during that time. ??The patient stated that he did not have any palpitations. ??He did report having some chest tightness initially the day prior however that had resolved and D-dimer is negative thus PE looks less likely. ??He was hospitalized for the syncopal episode as well as for some altered mental status as well as elevated lactic acid and leukocytosis. ??No signs of infection present. ??Lactic acid may be due to poor clearance of the liver as he has transaminitis likely related to fatty liver disease. ??At the time of discharge patient was stable to return home. ??Patient was offered to stay for echocardiogram however this would not be able to be completed until Wednesday and patientwould like to return home and do this on outpatient basis. ??Patient will be discharged with Zio patch to rule out any underlying cardiac arrhythmias that may have led to a syncopal event. ??At the time of discharge patient was stable to return home. ??Patient will require follow-up with his PCP within 1 week. ?? 2.??Altered mental status??R41.82 ?? 3.??Leukocytosis??D72.829 ?? 4.??Elevated lactic acid level??R79.89 ?? 5.??Myositis??M60.9 Continue prednisone follow-up with rheumatology. Ordered: predniSONE, 30 mg = 3 tab, Oral, Tab, Daily, First Dose: 01/31/22 9:00:00 EST, Routine ?? 6.??Sleep disorder??G47.9 ?? Orders: !-Augmentin 875 mg-125 mg oral tablet, 1 tab, Oral, every 12 hr, # 10 tab, 0 Refill(s), Pharmacy: [id number], 70, cm, 01/30/22 20:57:00 EST, Height/Length Dosing, 137, kg, 01/30/22 20:57:00 EST, Weight Dosing magnesium oxide, 400 mg = 1 tab, Oral, Tab, Daily, First Dose: 01/31/22 9:00:00 EST, Routine tiotropium 2.5 mcg/inh inhalation aerosol, 5 mcg, Inhale, Aerosol, Daily RT, First Dose: 02/01/22 7:00:00 EST, Routine Discharge Activity Restrictions, No Driving, Until follow up Discharge Activity Restrictions, as tolerated. Discharge Diet Instruction, Regular home diet Discharge Follow Up Instructions, 01/31/22 9:14:00 EST, When following are met: Alert and awake, Follow up with PCP within 1 week. Call for appointment. Discharge after ziopatch is in place. 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 Refills: 0. ?? Changed HYDROcodone-acetaminophen (HYDROcodone-acetaminophen 10 mg-325 mg oral tablet)TAKE TWO TABLETS BY MOUTH EVERY 4 HOURS NEEDED FOR PAIN. ?? methotrexate (methotrexate 10 mg oral tablet)6 tabs every week. ?? zolpidem (zolpidem 10 mg oral tablet)1 tab Oral (given by mouth) every day as needed not specified. ?? Unchanged albuterol (Ventolin HFA 90 mcg/inh inhalation aerosol)2 Puffs Inhale (breathe in) every 4 hours as needed other (see comment). Take as needed. Refills: 3. ?? 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 Dispense PAP machine machine with heated tubing, humidification, and data reporting capability. Supplies include mask cushion (full face mask, nasal mask, or nasal pillows), headgear, disposable and nondisposable filters, hose, chin strap (IF NEEDED), humidifier supplies. Please educate on machine use. Mask fit and provide on- going support as needed. Consider mask refit with Airfit F30i or Vrvana View. Refills: 0. ?? magnesium oxide (magnesium oxide 250 mg oral tablet)2 tab Oral (given by mouth) every day. ?? naloxone (Narcan 4 mg/0.1 mL nasal spray)1 Sprays Nasal (into the nose) as needed other (see comment). Take as needed. ?? predniSONE (predniSONE 10 mg oral tablet)3 tab Oral (given by mouth) every day for 60 Days. taper to20 mg after one month.. Refills: 0. ?? sildenafil (sildenafil 100 mg oral tablet)1 tab Oral (given by mouth) every day. ?? tiotropium (!-Spiriva 18 mcg inhalation capsule)1 Capsules Inhale (breathe in) every day. use two inhalations of one capsule for each dose. Refills: 0. Electronically Signed on 01/31/22 09:19 AM Jori Rey MD Patient Care team information PersonnelName: Korey Haro MD Address: Address: [address]
--- OUTSIDE RECORDS SUMMARY | 2022-04-08 13:25 | XMS_ITS | Continuity of Care Document ---
:1975 Author Organization [facility] Center Address [address] [place] [address] Care Team Providers Name Role Phone Korey Haro Primary Care Physician Encounter [facility] Date(s): 02/13/22 - 02/13/22 [facility] [address] [place] [address] Discharge Disposition: Home or Self Care Attending Physician: Geno Daniels MD Admitting Physician: Geno Daniels MD Referring Physician: Geno Daniels MD Allergies, Adverse Reactions, Alerts Substance Reaction Severity Status erythromycin Urticaria Unknown Active iodine topical Urticaria Moderate Active Assessment and Plan Future AppointmentsFuture Scheduled TestsLaboratoryFerritin 11/13/21Drug Screen Urine 01/19/2202OFYK-[id number]-8 (COVID-19) RNA (ID Now) 11/26/21 Immunizations Given and Recorded Vaccine Date Status Refusal Reason influenza virus vaccine, live 12/31/16 Recorded tetanus/diphth/pertuss (Tdap) adult/adol 04/24/11 Recorde d Not Given Vaccine Date Status Refusal Reason influenza, unspecified formulation1 09/15/21 Not Given Patient Refuses influenza, unspecified formulation2 09/15/21 Not Given Patient Refuses 1Result Comment: Last modified on [id number] Comment: Last modified on 01-22-2020 Medications !-Spiriva 18 mcg inhalation capsule 18 mcg = 1 cap, Inhale, Daily, use two inhalations of one capsule for each dose, # 90 EA, 0 Refill(s), Pharmacy: [facility] Start Date: 10/27/21 Status: OrderedDuration: Lifetime / 99 Duration: Lifetime / 99, URGENT [facility] needed, # 252 tab, 0 Refill(s), Pharmacy: [facility]58, 70, cm, 01/30/22 20:57:00 EST, Height/Length [...] month., # 180 tab, 0 Refill(s), Pharmacy: [facility] Start Date: 10/27/21 Stop Date: 12/26/21 Status: OrderedVentolin HFA 90 mcg/inh inhalation aerosol 180 mcg 2 puffs, Inhale, every 4 hr, PRN other (see comment), Take as needed, # 18 g, 3 Refill(s), Pharmacy: [facility] Start Date: 01/19/22 Status: Orderedzolpidem 10 mg oral tablet 10 mg = 1 tab, Oral, Daily, PRN not specified, # 28 tab, 2 Refill(s), Pharmacy: [facility]58, 70, cm, 01/30/22 20:57:00 EST, Height/Length [...] Therapeutic drug Confirmed Active monitoring assay 1Except [id number] respiratory manifestation other than pneumonia Procedures Procedure Date Related Diagnosis Body Site Status Orthopedic Surgery 07/25/06 Completed Left hemicolectomy1 03/07/05 Complete d 1Partial removal of colon Results Laboratory List Name Date .Manual Differential (NCTY) 02/13/22 CBC w/ Diff 02/13/22 Comprehensive Metabolic Panel 02/13/22 Most recent to oldest [Reference Range]: 1 WBC [5.0-10.0 x10^3/mcL] 11.1 x10^3/mcL *HI* (02/13/22 3:28 PM) RBC [4.6-6.0 x10^6/mcL] 5.0 x10^6/mcL (02/13/22 3:28 PM) Segs Man [40-75 %] 84 % *HI* (02/13/22 3:28 PM) Lymph Man [20-50 %] 8 % *LOW* (02/13/22 3:28 PM) [place] Man 7 % *NA* (02/13/22 3:28 PM) Eos Man 0 % *NA* (02/13/22 3:28 PM) BUN [7-18 mg/dL] 21 mg/dL *HI* (02/13/22 3:28 PM) Glucose Level [74-106 mg/dL] 277 mg/dL *HI* (02/13/22 3:28 PM) Potassium Level [3.5-5.1 mmol/L] 4.5 mmol/L (02/13/22 3:28 PM) MCV [80.0-96.0] 89.0 (02/13/22 3:28 PM) RBC Morph Normal (02/13/22 3:28 PM) AST [15-37 unit/L] 53 unit/L *HI* (02/13/22 3:28 PM) ALT [16-63 unit/L] 109 unit/L *HI* (02/13/22 3:28 PM) MCHC [31.0-35.0 g/dL] 32.4 g/dL (02/13/22 3:28 PM) Sodium Level [136-145 mmol/L] 132 mmol/L *LOW* (02/13/22 3: PM) Hct [41.0-51.0 %] 44.7 % (02/13/22 3: PM) Calcium Level [8.5-10.1 mg/dL] 8.8 mg/dL (02/13/22 3:28 PM) Albumin Level [3.4-5.0 g/dL] 3.1 g/dL *LOW* (02/13/22 3:28 PM) Protein Total [6.4-8.2 g/dL] 9.3 g/dL *HI* (02/13/22 3:28 PM) MCH [26.0-32.0 pg] 28.9 pg (02/13/22 3:28 PM) Bilirubin Total [0.2-1.0 mg/dL] 0.4 mg/dL (02/13/22 3:28 PM) Hgb [14.0-18.0 g/dL] 14.5 g/dL (02/13/22 3:28 PM) Alk Phos [46-146 unit/L] 57 unit/L (02/13/22 3:28 PM) Band Man [0-5 %] 0 % (02/13/22 3:28 PM) Platelets [130-450 x10^3/mcL] 226 x10^3/mcL (02/13/22 3:28 PM) CO2 [21-32 mmol/L] 27 mmol/L (02/13/22 3:28 PM) eGFR Non-AA [>=60] 76 (02/13/22 3:28 PM) eGFR AA [>=60] 76 (02/13/22 3:28 PM) Chloride Level [98-107 mmol/L] 98 mmol/L (02/13/22 3:28 PM) RDW-CV [11.5-17.0 %] 14.5 % (02/13/22 3:28 PM) Abs Neut Man 9.3 x10^3/mcL *NA* (02/13/22 3:28 PM) Immature Cells 1 *NA* (02/13/22 3:28 PM) Creatinine Level [0.70-1.30 mg/dL] 1.19 mg/dL (02/13/22 3:28 PM) Baso Man [0-1 %] 0 % (02/13/22 3:28 PM) Social History Social History Type Response Tobacco Former tobacco user Tobacco Use:. Sex Male Patient Care team information PersonnelName: Korey Haro MD Address: Address: [id number] [place] [address]
[2022-04-09 07:43] LABS: Absolute Basophil Count 0.04 10^3/uL (0.0-0.2); Absolute Monocyte Count 0.79 10^3/uL (0.1-0.8); Basophils % 0.3; Eosinophils % 0.2; HGB 14.9 g/dL (13.5-17.5); Immature Grans % 3.8; Lymphocytes % 23.8; MCH 29.4 pg (27.0-33.0); MCHC 33.1 % (32.0-36.0); MCV 89 fL (80-95); MPV 9.4 fL (8.0-11.0); Monocytes % 6.1; Neutrophils % 65.8; Nucleated RBC 0.2 % (0.0-0.3); Platelet Count 186 10^3/uL (130-400); RBC 5.07 10^6/uL (4.36-5.78); RDW 16.5 % (11.8-14.1); RDW-SD 53.1 fL; WBC 13.03 10^3/uL (4.4-10.8)
[2022-04-09 07:46] LABS: Absolute Eosinophil Count 0.03 10^3/uL (0.0-0.7); Absolute Neutrophil Count 8.57 10^3/uL (1.2-6.7)
[2022-04-09 08:22] LABS: ALT 198 U/L (16-63); AST 84 U/L (15-37); Albumin 3.4 g/dL (3.4-5.0); Alkaline Phosphatase 55 U/L (46-116); Anion Gap 9.9 mmol/L (3-11); BUN 32 mg/dL (7-18); Bilirubin, Total 0.7 mg/dL (0.2-1.0); CO2 27.1 mmol/L (21.0-32.0); CREATININE 1.2 mg/dL (0.70-1.30); Calcium 9.6 mg/dL (8.5-10.1); Chloride 99 mmol/L (98-107); Estimated GFR 75.53 (mL/min/1.73m2); Glucose 182 mg/dL (74-106); Potassium 3.8 mmol/L (3.5-5.1); Sodium 136 mmol/L (136-145); Total Protein 7.6 g/dL (6.4-8.2)
== END 2022-04-09 04:21 | disposition home or self-care (01) ==
PROVIDERS: PCP Student in an Organized Health Care Education/Training Program; Visit Provider Student in an Organized Health Care Education/Training Program
DX: K62.5 Hemorrhage of anus and rectum (principal); M60.9 Myositis, unspecified
CPT/HCPCS: 36415; 80053; 85025

== ENCOUNTER 2023-03-04 10:53 | Outpatient (CLI) | payer MEDICAID, SELFPAY ==
[2023-03-04 09:57] LABS: Abs Immature Grans 0.11 10^3/uL (0.0-0.06); Absolute Lymphocyte Count 1.32 10^3/uL (1.2-3.4); Absolute Neutrophil Count 12.43 10^3/uL (1.2-6.7); Basophils % 0.3; Eosinophils % 0.7; HCT 39.7 % (40.0-50.0); HGB 12.8 g/dL (13.5-17.5); Immature Grans % 0.7; Lymphocytes % 8.8; MCH 27.4 pg (27.0-33.0); MCHC 32.2 % (32.0-36.0); MCV 85 fL (80-95); MPV 10.1 fL (8.0-11.0); Monocytes % 6.4; Neutrophils % 83.1; Platelet Count 238 10^3/uL (130-400); RBC 4.68 10^6/uL (4.36-5.78); RDW-SD 49.1 fL; WBC 14.96 10^3/uL (4.4-10.8)
[2023-03-04 09:59] LABS: Absolute Basophil Count 0.04 10^3/uL (0.0-0.2); Absolute Monocyte Count 0.96 10^3/uL (0.1-0.8)
[2023-03-04 10:01] LABS: ESR 18 mm/hr (0-15)
[2023-03-04 10:14] LABS: ALT 43 U/L (16-63); AST 28 U/L (15-37); Albumin 3.5 g/dL (3.4-5.0); Alkaline Phosphatase 50 U/L (46-116); Anion Gap 9.8 mmol/L (3-11); BUN 28 mg/dL (7-18); Bilirubin, Total 0.5 mg/dL (0.2-1.0); C-Reactive Protein 1.75 mg/dL (0.0-0.3); CO2 27.2 mmol/L (21.0-32.0); CREATININE 1.2 mg/dL (0.70-1.30); Calcium 9.1 mg/dL (8.5-10.1); Chloride 103 mmol/L (98-107); Creatine Kinase 299 U/L (39-308); Estimated GFR 75.06 (mL/min/1.73m2); Glucose 175 mg/dL (74-106); Sodium 140 mmol/L (136-145); Total Protein 6.9 g/dL (6.4-8.2)
== END 2023-03-04 10:54 | disposition home or self-care (01) ==
LOC: LBO 10:53
PROVIDERS: PCP Student in an Organized Health Care Education/Training Program; Visit Provider Internal Medicine Rheumatology
DX: M60.88 Other myositis, other site (principal); Z79.899 Other long term (current) drug therapy; G72.89 Other specified myopathies; R70.0 Elevated erythrocyte sedimentation rate; R79.82 Elevated C-reactive protein (CRP)
CPT/HCPCS: 36415; 80053; 82550; 85652; 85025; 86140